=== PATIENT | female | born 1995 | race Caucasian/White ===

== ENCOUNTER 2023-06-09 13:45 | Emergency (ER) | payer MEDICAID, SELFPAY ==
[2023-06-09 13:46] VITALS: BP 141/84; PULSE 95; RESP 16; TEMP 36.1; O2SAT 98; BMI 31.6
--- NOTE | 2023-06-09 13:53 | EX.ED.DYSGE1 ---
HPI History of Present Illness Chief Complaint: Flank Pain Informant: patient Onset/Context/Timing Onset: Days (2) Context: Gradual Onset Timing: Continuous Quality: Sharp Location: Right flank Worsened by: Nothing Relieved by: Leaning to the right Narrative Narrative: Patient presents with right flank pain that has been getting progressively worse over the past couple days. Patient states he has a history of kidney stones and states this feels similar to prior kidney stones. Patient describes her pain as sharp. Patient states it is better when she leans to the right. Patient admits to some nausea but denies any vomiting. Patient admits to some dysuria, frequency, and hematuria. Patient admits to some subjective fevers last night. Patient denies any chest pain or shortness of breath. [facility] Medical History (Updated 06/09/23 @ 15:[address] Jimenez Payton DO) Endometriosis determined by laparoscopy Kidney stones Physical exam, pre-employment Home Medications hydrocodone-acetaminophen 5-325mg 5mg-325mg 1 tab PO Q6H PRN PRN Pain 3 days #10 TABLETS 06/09/23 [Rx Last Taken Unknown] Allergy/AdvReac Type Severity Reaction Status Date / Time No Known Allergies Allergy Verified 06/09/23 13:45 Surgical History (Updated 06/09/23 @ 13:[address] Jimenez Payton DO) Hx of tonsillectomy S/P lumpectomy, left breast Social History Smoking Status: Current every day smoker tobacco type: cigarettes ROS ROS ED Constitutional Constitutional ED: Reports fever(s) and subjective; Denies chills Eyes Eyes: Denies blurry vision or change in vision ENT ENT ED: Denies rhinorrhea or sore throat Cardiovascular Cardiovascular: Denies chest pain or palpitations Respiratory/Chest Respiratory/Chest: Denies cough or dyspnea Gastrointestinal Gastrointestinal: Reports abdominal pain and nausea; Denies vomiting Genitourinary Genitourinary ED: Reports dysuria, hematuria and urinary frequency Musculoskeletal Musculoskeletal: Reports back pain; Denies neck pain Integumentary Denies abscess or rash Neurologic Neurologic: Denies headache(s) or weakness Allergic/Immunologic Allergic/Immunologic ED: Denies mouth swelling or urticaria EXAM Physical Exam Const Vital Signs: 06/09/23 13:46 Temperature 97 F L Temperature Source Temporal Pulse Rate 95 Respiratory Rate 16 Blood Pressure 141/84 H Blood Pressure Mean 103 Pulse Ox 98 Oxygen Delivery Method Room Air Positive well nourished, well developed and obese General Appearance ED: well developed and NAD Nutritional Appearance: obese HEENT Reports moist mucous membranes Neck supple and no JVD Resp normal respiratory effort and clear to auscultation bilaterally Cardio regular rate and regular rhythm GI non-distended Palpation: soft and tender RLQ; Negative for guarding or rebound tenderness present Back/Spine General Back: CVA tenderness right Neuro oriented x3, CN's II-XII intact bilaterally and no sensory deficits noted Sensorium / Orientation: alert Motor Exam: strength 5/5 throughout MDM MDM MDM Narrative Medical decision making narrative: Differential diagnosis includes ureteral calculus, pyelonephritis, bowel obstruction, perforation, appendicitis, mesenteric adenitis, and urinary tract infection. CBC will be obtained to assess for leukocytosis and anemia. Basic metabolic profile will be obtained to assess for electrolyte abnormality and renal function. Serum hCG will be obtained to assess for . CT scan of the abdomen pelvis will be obtained to assess for ureteral calculus, pyelonephritis, bowel obstruction, perforation, and appendicitis. Lab Data Attestation: I reviewed the patient's lab results. Lab results narrative: CBC was reviewed and was essentially within normal limits. Basic metabolic profile was reviewed and was within normal limits. Serum hCG was reviewed and was negative. Urinalysis was reviewed. There is no evidence of urinary tract infection or hematuria. Labs: Laboratory Results - last 24 hr 06/09/23 14:10 WBC 7.8 RBC 5.38 Hgb 16.0 H Hct 47.7 H MCV 88.7 MCH 29.7 MCHC 33.5 RDW Std Deviation 42.0 RDW Coeff of Shankar 12.9 Plt Count 349 MPV 10.4 Immature Gran % (Auto) 0.100 Neut % (Auto) 63.3 Lymph % (Auto) 26.2 [place] % (Auto) 7.7 Eos % (Auto) 2.4 Baso % (Auto) 0.3 Absolute Neuts (auto) 5.0 Absolute Lymphs (auto) 2.05 Nucleated RBC % 0 Sodium 138 Potassium 3.7 Chloride 109 H Carbon Dioxide 26.0 Anion Gap 3 L BUN 6 L Creatinine 0.78 Estim Creat Clear Calc 98.23 Est GFR (MDRD) Af Amer 111 Est GFR (MDRD) Non-Af 92 BUN/Creatinine Ratio 7.7 L Glucose 101 Calcium 9.1 Serum , Qual NEGATIVE Urine Color Yellow Urine Clarity Sl. Cloudy Urine pH 6.0 Ur Specific [place] 1.020 Urine Protein Negative Urine Glucose (UA) Normal Urine Ketones Negative Urine Occult Blood 10 H Urine Nitrite Negative Urine Bilirubin Negative Urine Urobilinogen Normal Ur Leukocyte Esterase 25 H Urine RBC 0 SEEN Urine WBC 0 SEEN Ur Squamous Epith Cells > 100 SEEN Urine Bacteria 0 SEEN Urine Mucus 0 SEEN Radiography Diagnostic Testing: Clinical Impression(s) from Imaging Studies Abdomen/Pelvis CT 06/09/23 14:00 IMPRESSION: (NOT LISTED IN ORDER OF SIGNIFICANCE) Nonobstructive right renal stone. Other findings as above. Electronically Signed: Femi Ventura MD at 15:29 EDT , CT scan of the abdomen pelvis was obtained. There are nonobstructive right renal calculi. There is no acute abnormality. There is no evidence of bowel obstruction or perforation. There is no evidence of appendicitis. This was interpreted by the radiologist and was also independently reviewed by myself. Treatment and Re-Evaluation :: Patient was given IV fluids, morphine, and Zofran. Patient was advised of her findings. Patient is feeling better on reevaluation. Patient was instructed to drink plenty of fluids. Patient was given a prescription for a short course of [place]. Patient was instructed to follow-up with her primary care physician in 5 to 7 days. Patient understood and was agreeable with the plan. All questions were answered. Discharge Plan Triage Chief Complaint: Flank Pain ED Provider: Jimenez Payton Dx/Rx/DC Orders Clinical Impression: Acute right flank pain, Obesity (BMI 30-39.9) Instructions: ED Flank Pain, Uncertain Cause Prescriptions: New hydrocodone-acetaminophen [hydrocodone-acetaminophen] 5-325 mg tablet 1 tab PO Q6H PRN PRN (Reason: Pain) 3 Days Qty: 10 0RF Primary Care Provider: Care Physician,No Primary Referrals: Denisse Salinas MD [Med Staff - Self [employer] Manager] - 5-7 Days Care Physician,No Primary [Primary Care Provider] - Disposition Disposition: Home, Self Care
--- NOTE | 2023-06-09 14:00 | CT_ITS ---
STUDY: CT Abdomen And Pelvis W/O Contrast Injection 06/09/2023 3:27 PM REASON FOR EXAM: Female, 28 years old. ABDOMINAL PAIN Right flank pain TECHNIQUE: Transaxial images were obtained without oral contrast, and without intravenous contrast. Individualized dose optimization techniques were used for this CT. COMPARISON: None FINDINGS: The visualized lung bases are unremarkable. The visualized portions of the heart are within normal limits. Unremarkable liver. Unremarkable gallbladder and extrahepatic biliary system. Unremarkable spleen. Unremarkable pancreas. Unremarkable bilateral adrenal glands. Non obstructive 2 mm right renal parenchymal stones. No acute findings of the left kidney. Unremarkable visualized stomach. Unremarkable small intestine. Unremarkable colon. The appendix is visualized and appears unremarkable. There are no acute findings of the abdominal aorta. Unremarkable inferior vena cava. Subcentimeter mesenteric lymph nodes. Unremarkable urinary bladder. Normal visualized uterus. There is an umbilical hernia containing fat. Unremarkable osseous structures. CT/Abdomen/Pelvis without Cont IMPRESSION: (NOT LISTED IN ORDER OF SIGNIFICANCE) Nonobstructive right renal stone. Other findings as above. Electronically Signed: Femi Ventura MD at 15:29 EDT ,
[2023-06-09] MEDS: Ondansetron 4 MG/2 ML Vial IV (14:10)
[2023-06-09] MEDS: 0.9% Normal Saline (1000mL) 1,000 ML 1000 ML IV (14:10)
[2023-06-09] MEDS: Morphine 4 MG/ML Syringe IV (14:13)
[2023-06-09 14:20] LABS: Bacteria 0 SEEN /hpf (None Seen); Mucous, Urine 0 SEEN /hpf (<or=2+); Red Blood Cells-Urine 0 SEEN /hpf (0-5); White Blood Cells 0 SEEN /hpf (0-5)
[2023-06-09 14:24] LABS: Absolute Lymphocyte Count 2.05 X10^3/uL (0.83-4.51); Basophil# 0.02 X10^3/uL; Basophil% 0.3 % (0-1); Color, Urine Yellow (Yellow); Eosinophil# 0.19 X10^3/uL; Eosinophils% 2.4 % (0-5); Glucose, Dipstick Normal (Normal); Hematocrit 47.7 % (37-47); Ketone-Dipstick Negative (Negative); Leukocyte Esterase-Dipstick 25 /ul (Negative); Lymphocyte # 2.05 X10^3/ul (0.83-4.51); Lymphocyte % 26.2 % (19-41); Mean Corp Hgb Conc 33.5 g/dL (32-36); Mean Corpuscular Hgb 29.7 pg (27.0-32.0); Mean Corpuscular Volume 88.7 fL (81-99); Mean Platelet Vol. 10.4 fl (6.2-12.0); Monocyte% 7.7 % (0-10); NRBC Flagged by Analyzer 0 % (0-5); Neutrophil # 4.95 X10^3/uL (2.7-7.7); Neutrophil % 63.3 % (47-70); Nitrite-Dipstick Negative (Negative); Occult Blood-Urine 10 /ul (Negative); Platelet Count 349 K/mm3 (150-450); Protein-Dipstick Negative (Negative); RBC Distribution Width CV 12.9 % (11.6-14.6); Red Blood Count 5.38 M/mm3 (4.2-5.4); Urine Bilirubin Dipstick Negative (Negative); Urine Clarity Sl. Cloudy (Clear); Urine Urobilinogen Normal (Normal); White Blood Count 7.8 K/mm3 (4.4-11.0)
[2023-06-09 14:29] LABS: Squamous Epithelial Cells - UA > 100 SEEN /hpf (5-10)
[2023-06-09 14:31] LABS: Internal QC Validated? YES +Cl - CLEAR BKGD; Pregnancy, Serum, hCG Quali. NEGATIVE Negative
[2023-06-09 14:32] LABS: Record Kit Lot#, Serum Preg. HCG0000718086
[2023-06-09 14:36] LABS: Anion Gap 3 (5-15); BUN 6 mg/dL (7-18); BUN/Creat Ratio 7.7 RATIO (10-20); Calcium,Total 9.1 mg/dL (8.5-10.1); Chloride 109 mmol/L (98-107); Creatinine, Serum 0.78 mg/dL (0.55-1.02); EST Glomerular Filtration Rate 92 mL/min (>60); Est Glom Filt Rate - Afr Amer 111 mL/min (>60); Estimated Creatinine Clearance 98.23 ml/min; Glucose 101 mg/dL (74-106); Potassium 3.7 mmol/L (3.5-5.1); Sodium Level 138 mmol/L (136-145)
[2023-06-09 15:41] VITALS: BP 129/97; PULSE 90; RESP 20; O2SAT 98
[2023-06-09 15:53] VITALS: BP 129/97; PULSE 90; RESP 20; TEMP 36.2; O2SAT 98
== END 2023-06-09 15:55 | disposition home or self-care (01) ==
PROVIDERS: Emergency Provider Emergency Medicine; Visit Provider Emergency Medicine
DX: R10.9 Unspecified abdominal pain (principal); E66.9 Obesity, unspecified; F17.210 Nicotine dependence, cigarettes, uncomplicated
CPT/HCPCS: 74176; 80048; 81001; 84703; 85025; 96361; 96374; 96375; 99283; J7030; A4216; J2405

== ENCOUNTER 2024-01-06 17:06 | Emergency (ER) | payer SELFPAY ==
[2024-01-06 17:06] VITALS: BP 140/89; PULSE 81; RESP 17; TEMP 36.6; O2SAT 100; BMI 30.1
--- NOTE | 2024-01-06 17:17 | CT_ITS ---
EXAM: CT ABDOMEN AND PELVIS WITHOUT INTRAVENOUS CONTRAST CLINICAL INDICATION: right flank pain TECHNIQUE: Helically acquired images were obtained of the abdomen and pelvis without intravenous contrast. This CT exam was performed using one or more of the following dose reduction techniques: automated exposure control, adjustment of the mA and/or kV according to patient size, and/or use of iterative reconstruction technique. RADIATION DOSE: CTDIvol = 7.48 mGy, DLP = 386.79 mGy-cm COMPARISON: 06/09/2023 FINDINGS: LOWER THORAX: Unremarkable. Lung bases are clear. No cardiomegaly. No significant pericardial effusion. ABDOMEN: LIVER: Unremarkable. Homogeneous. GALLBLADDER AND BILE DUCTS: Unremarkable. No calcified gallstones. No gallbladder distention or wall edema. No intra- or extrahepatic biliary ductal dilation. PANCREAS: Unremarkable. No focal cystic mass. SPLEEN: Unremarkable. Normal size without focal cystic or solid mass. ADRENALS: Unremarkable. No nodules. KIDNEYS AND URETERS: 2 mm nonobstructive right renal stone. Normal renal size and position. STOMACH AND BOWEL: Unremarkable. No stomach or bowel distention. No focal inflammatory change. PELVIS: APPENDIX: Unremarkable appearance of the appendix. BLADDER: Unremarkable. REPRODUCTIVE: Unremarkable uterus. ABDOMEN and PELVIS: INTRAPERITONEAL SPACE: Unremarkable. No ascites or other fluid collection. No free air. BONES/JOINTS: Unremarkable. No suspicious lytic or blastic abnormality. SOFT TISSUES: Umbilical hernia containing fat. VASCULATURE: Unremarkable. Abdominal aorta is non-dilated. LYMPH NODES: Unremarkable. No enlarged lymph nodes. CT/Abdomen/Pelvis without Cont IMPRESSION: 1. 2 mm nonobstructive right renal stone. 2. Umbilical hernia containing fat. Electronically Signed: Femi Ventura MD at 19:01 EST ,
--- NOTE | 2024-01-06 17:18 | EX.ED.DYSGE1 ---
HPI <SHERRI Quijano - Last Filed: 01/06/24 19:10> History of Present Illness Chief Complaint: Complaint Narrative Narrative: 28-year-old female with past medical history of kidney stones presents with right flank pain. 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 However, the pain became more severe last night and woke her from sleep and this morning around 11 AM it caused her to vomit. Pain is radiating around to her right groin. She also has urinary frequency and burning. No vaginal discharge. No fever or chills. She has had kidney stones multiple times in the past but never required surgery. She was seeing a urologist in [place] and was told they were calcium stones and to cut out soda which did help but she started drinking it again recently. PFSH <SHERRI Quijano - Last Filed: 01/06/24 19:10> [facility] Medical History (Updated 01/06/24 @ 19:03 by SHERRI Quijano) Kidney stones Endometriosis determined by laparoscopy Physical exam, pre-employment Home Medications ?Medication ?Instructions ?Recorded ?Last Taken ?Type hydrocodone-acetaminophen 5-325mg 1 tab PO Q6H PRN PRN Pain 3 days 06/09/23 Unknown Rx 5mg-325mg #10 TABLETS ondansetron 4 mg disintegrating 4 mg PO Q8H PRN PRN Nausea #10 tabs 06/09/23 Unknown Rx tablet Allergy/AdvReac Type Severity Reaction Status Date / Time No Known Allergies Allergy Verified 01/06/24 17:07 Surgical History (Updated 06/09/23 @ 13:[address] Jimenez Payton, DO) Hx of tonsillectomy S/P lumpectomy, left breast Social History Smoking Status: Current every day smoker tobacco type: cigarettes ROS <SHERRI Quijano - Last Filed: 01/06/24 19:10> ROS ED ROS Narrative Constitutional: Negative for fever, chills, malaise. CVS: Negative for chest pain. Respiratory: Negative for shortness of breath, cough. GI: Positive for abdominal pain, nausea, vomiting. Negative for diarrhea, constipation, melena, hematochezia. : Positive for dysuria. EXAM <SHERRI Quijano - Last Filed: 01/06/24 19:10> Physical Exam Narrative Exam Narrative: CONST: Patient sitting in no acute distress. EYES: Normal inspection. ENT: Normal inspection, moist mucous membranes. NECK: Normal inspection. RESP: No respiratory distress, CTAB. CVS: Regular rate and rhythm, no murmur, no gallop. ABD: Soft and nontender, no guarding or rebound, nondistended. Back: Normal inspection, right CVA tenderness. SKIN: Color normal, no rash, warm, dry, intact. EXTREMITIES: Normal appearance, no pedal edema. NEURO: Alert and answering questions appropriately. PSYCH: Normal affect. Const Vital Signs: 01/06/24 17:06 Temperature 98 F Temperature Source Temporal Pulse Rate 81 Respiratory Rate 17 Blood Pressure 140/89 H Blood Pressure Mean 106 Pulse Ox 100 Oxygen Delivery Method Room Air <Dr. Yannick Irizarry MD - Last Filed: 01/06/24 19:13> Physical Exam Const Vital Signs: 01/06/24 17:06 Temperature 98 F Temperature Source Temporal Pulse Rate 81 Respiratory Rate 17 Blood Pressure 140/89 H Blood Pressure Mean 106 Pulse Ox 100 Oxygen Delivery Method Room Air MDM <SHERRI Quijano - Last Filed: 01/06/24 19:10> [facility] MDM Narrative Medical decision making narrative: Differential includes but not limited to: UTI, pyelonephritis, kidney stone, muscle pain Patient has right flank pain. She appears well and nontoxic and is hemodynamically stable. She has CVA tenderness on exam. Soft, nontender benign abdomen. Basic labs and urinalysis are normal. There is no hematuria or infection. test negative. Due to her history of stones a CT scan was obtained which shows no acute process. There is a small nonobstructive stone which is unchanged from previous. Patient was treated with Toradol and advised to take dhps-nce-loieujt pain relievers at home. At this time I am not sure what the etiology of her right flank pain is. She was discharged in stable condition Lab Data Labs: Laboratory Results - last 24 hr 01/06/24 01/06/24 17:33 17:45 WBC 9.7 RBC 5.21 Hgb 14.9 Hct 46.0 MCV 88.3 MCH 28.6 MCHC 32.4 RDW Std Deviation 41.1 RDW Coeff of Shankar 12.6 Plt Count 333 MPV 10.5 Immature Gran % (Auto) 0.300 Neut % (Auto) 66.3 Lymph % (Auto) 23.6 [place] % (Auto) 7.0 Eos % (Auto) 2.5 Baso % (Auto) 0.3 Absolute Neuts (auto) 6.5 Absolute Lymphs (auto) 2.30 Nucleated RBC % 0 Sodium 140 Potassium 3.7 Chloride 110 H Carbon Dioxide 26.0 Anion Gap 5 BUN 9 Creatinine 0.66 Estim Creat Clear Calc 113.34 Est GFR (MDRD) Af Amer 136 Est GFR (MDRD) Non-Af 112 BUN/Creatinine Ratio 13.7 Glucose 93 Calcium 9.1 Urine Color Yellow Urine Clarity Clear Urine pH 6.0 Ur Specific [place] 1.010 Urine Protein Negative Urine Glucose (UA) Normal Urine Ketones Negative Urine Occult Blood Negative Urine Nitrite Negative Urine Bilirubin Negative Urine Urobilinogen Normal Ur Leukocyte Esterase Negative Urine RBC 0 SEEN Urine WBC 0-5 SEEN Ur Squamous Epith Cells 0 SEEN Urine Bacteria RARE Urine Mucus 0 SEEN Urine Test Negative Radiography Diagnostic Testing: Clinical Impression(s) from Imaging Studies Abdomen/Pelvis CT 01/06/24 17:17 IMPRESSION: 1. 2 mm nonobstructive right renal stone. 2. Umbilical hernia containing fat. Electronically Signed: Femi Ventura MD at 19:01 EST Reading Location ID and State: [address] [place] [address] , Service support , <Dr. Yannick Irizarry MD - Last Filed: 01/06/24 19:13> [facility] MDM Narrative Medical decision making narrative: Differential includes but not limited to: UTI, pyelonephritis, kidney stone, muscle pain Patient has right flank pain. She appears well and nontoxic and is hemodynamically stable. She has CVA tenderness on exam. Soft, nontender benign abdomen. Basic labs and urinalysis are normal. There is no hematuria or infection. test negative. Due to her history of stones a CT scan was obtained which shows no acute process. There is a small nonobstructive stone which is unchanged from previous. Patient was treated with Toradol and advised to take guxi-oea-hrxceck pain relievers at home. At this time I am not sure what the etiology of her right flank pain is. She was discharged in stable condition I have personally performed a face to face assessment of the patient and have reviewed the ASHLEY Note. I performed a substantive portion of the visit including all aspects of the following. My gu findings include: History is remarkable for prior renal stones. Patient was seen June and was diagnosed with a small right renal calculus. There is no evidence of hydronephrosis hydroureter or a stone in the ureter. She presents with right flank pain rating to the groin. She reports nausea and vomiting. She also reports frequency. She has not noted any blood. She states there is some discomfort with urination. There is no history of direct or indirect trauma. She has not noted a rash. Exam is patient appears uncomfortable. Patient has pain out of proportion to tactile stimulus. There are no dermatologic lesions noted. Abdomen is soft and nontender in my opinion. There is decreased bowel sounds. There is no hepatosplenomegaly. There is no inguinal lymphadenopathy or mass noted. Medical Decision Making will obtain UA and appropriate blood work. CT was obtained. Patient's workup is unremarkable. Patient was told that the cause of her pain is unknown. She was informed that a stone in the kidney does not cause pain. Asked if she had any questions or any else we could do. She stated since the cause is unknown she had no questions and did not request any additional pain medicine. There was a note by the nursing staff that the Toradol did not work. Patient was told since we do not know the cause of the pain nothing else would be given. Other additions or changes: None Lab Data Attestation: I reviewed the patient's lab results. Lab results narrative: CBC is normal. Basic metabolic panel is unremarkable with a chloride of 110. Urinalysis is negative Labs: Laboratory Results - last 24 hr 01/06/24 01/06/24 17:33 17:45 WBC 9.7 RBC 5.21 Hgb 14.9 Hct 46.0 MCV 88.3 MCH 28.6 MCHC 32.4 RDW Std Deviation 41.1 RDW Coeff of Shankar 12.6 Plt Count 333 MPV 10.5 Immature Gran % (Auto) 0.300 Neut % (Auto) 66.3 Lymph % (Auto) 23.6 [place] % (Auto) 7.0 Eos % (Auto) 2.5 Baso % (Auto) 0.3 Absolute Neuts (auto) 6.5 Absolute Lymphs (auto) 2.30 Nucleated RBC % 0 Sodium 140 Potassium 3.7 Chloride 110 H Carbon Dioxide 26.0 Anion Gap 5 BUN 9 Creatinine 0.66 Estim Creat Clear Calc 113.34 Est GFR (MDRD) Af Amer 136 Est GFR (MDRD) Non-Af 112 BUN/Creatinine Ratio 13.7 Glucose 93 Calcium 9.1 Urine Color Yellow Urine Clarity Clear Urine pH 6.0 Ur Specific [place] 1.010 Urine Protein Negative Urine Glucose (UA) Normal Urine Ketones Negative Urine Occult Blood Negative Urine Nitrite Negative Urine Bilirubin Negative Urine Urobilinogen Normal Ur Leukocyte Esterase Negative Urine RBC 0 SEEN Urine WBC 0-5 SEEN Ur Squamous Epith Cells 0 SEEN Urine Bacteria RARE Urine Mucus 0 SEEN Urine Test Negative Radiography Diagnostic Testing: Clinical Impression(s) from Imaging Studies Abdomen/Pelvis CT 01/06/24 17:17 IMPRESSION: 1. 2 mm nonobstructive right renal stone. 2. Umbilical hernia containing fat. Electronically Signed: Femi Ventura MD at 19:01 EST Reading Location ID and State: [facility] / [place] , Service support , CT of the abdomen and pelvis without contrast reveals a stone in the right kidney. This is unchanged from prior. Awaiting for formal read by radiologist, [phone] Discharge Plan Triage Chief Complaint: Complaint ED Midlevel Provider: Marleni Handley ED Provider: Yannick Irizarry Dx/Rx/DC Orders Clinical Impression: Right flank pain Instructions: Abdominal Pain, ED Flank Pain, Uncertain Cause Prescriptions: No Action hydrocodone-acetaminophen [hydrocodone-acetaminophen] 5-325 mg tablet 1 tab PO Q6H PRN PRN (Reason: Pain) 3 Days Qty: 10 0RF ondansetron [ondansetron] 4 mg tablet,disintegrating 4 mg PO Q8H PRN PRN (Reason: Nausea) Qty: 10 0RF Primary Care Provider: Care Physician,No Primary Referrals: Care Physician,No Primary [Primary Care Provider] - Activity Restrictions/Additional Instructions: I am not sure what the source of your right flank pain is. Your labs and CT scan are within normal limits. Please take Tylenol or Motrin as needed and follow-up with your doctor. Print Language: Yakut Disposition Disposition: Home, Self Care
[2024-01-06] MEDS: Ketorolac 30 MG/ML Syringe IV (17:28)
[2024-01-06 17:46] LABS: Absolute Neutrophil Count 6.5 X10^3/uL (2.0-7.7); Basophil# 0.03 X10^3/uL; Basophil% 0.3 % (0-1); Eosinophil# 0.24 X10^3/uL; Eosinophils% 2.5 % (0-5); Hemoglobin 14.9 g/dL (12.0-15.0); Lymphocyte % 23.6 % (19-41); Mean Corp Hgb Conc 32.4 g/dL (32-36); Mean Corpuscular Hgb 28.6 pg (27.0-32.0); Mean Corpuscular Volume 88.3 fL (81-99); Mean Platelet Vol. 10.5 fl (6.2-12.0); Monocyte# 0.68 X10^3/uL; NRBC Flagged by Analyzer 0 % (0-5); Neutrophil # 6.45 X10^3/uL (2.7-7.7); Neutrophil % 66.3 % (47-70); Platelet Count 333 K/mm3 (150-450); RBC Distribution Width CV 12.6 % (11.6-14.6); RBC Distribution Width SD 41.1 fl (35.1-43.9); Red Blood Count 5.21 M/mm3 (4.2-5.4); White Blood Count 9.7 K/mm3 (4.4-11.0)
[2024-01-06 17:50] LABS: Mucous, Urine 0 SEEN /hpf (<or=2+); Red Blood Cells-Urine 0 SEEN /hpf (0-5); Squamous Epithelial Cells - UA 0 SEEN /hpf (5-10)
[2024-01-06 17:53] LABS: Color, Urine Yellow (Yellow); Glucose, Dipstick Normal (Normal); Ketone-Dipstick Negative (Negative); Leukocyte Esterase-Dipstick Negative /ul (Negative); Nitrite-Dipstick Negative (Negative); Occult Blood-Urine Negative /ul (Negative); Protein-Dipstick Negative (Negative); Urine Bilirubin Dipstick Negative (Negative); Urine Clarity Clear (Clear); Urine Urobilinogen Normal (Normal)
[2024-01-06 17:57] LABS: Anion Gap 5 (5-15); BUN 9 mg/dL (7-18); BUN/Creat Ratio 13.7 RATIO (10-20); Calcium,Total 9.1 mg/dL (8.5-10.1); Chloride 110 mmol/L (98-107); Creatinine, Serum 0.66 mg/dL (0.55-1.02); EST Glomerular Filtration Rate 112 mL/min (>60); Est Glom Filt Rate - Afr Amer 136 mL/min (>60); Estimated Creatinine Clearance 113.34 ml/min; Glucose 93 mg/dL (74-106); Potassium 3.7 mmol/L (3.5-5.1); Sodium Level 140 mmol/L (136-145)
[2024-01-06 17:59] LABS: Internal QC Validated? YES +Cl - CLEAR BKGD; Pregnancy, Urine Negative Negative
[2024-01-06 18:01] LABS: Bacteria RARE /hpf (None Seen); White Blood Cells 0-5 SEEN /hpf (0-5)
[2024-01-06 19:06] VITALS: PULSE 68; RESP 18; O2SAT 99
[2024-01-06 19:16] VITALS: BP 146/89; PULSE 80; RESP 18; TEMP 36; O2SAT 98
== END 2024-01-06 19:19 | disposition home or self-care (01) ==
PROVIDERS: Physician Assistant; Emergency Provider Emergency Medicine; Visit Provider Emergency Medicine
DX: N20.0 Calculus of kidney (principal); Z87.442 Personal history of urinary calculi; F17.210 Nicotine dependence, cigarettes, uncomplicated
CPT/HCPCS: 74176; 80048; 81001; 81025; 85025; 96374; 99283; A4216

== ENCOUNTER 2024-05-12 15:02 | Emergency (ER) | payer MEDICAID, SELFPAY ==
[2024-05-12 15:05] VITALS: BP 143/100; PULSE 99; RESP 20; TEMP 36.6; O2SAT 100; BMI 29.3
--- NOTE | 2024-05-12 15:07 | EKG12_ITS ---
Test Reason : CP Blood Pressure : */* mmHG Vent. Rate : 95 BPM Atrial Rate : 95 BPM P-R Int : 132 ms QRS Dur : 70 ms QT Int : 354 ms P-R-T Axes : 72 64 42 degrees QTcB Int : 444 ms Normal sinus rhythm Normal ECG Confirmed by Binh Panchal ([id number]), manuscript editor CHERRI MAYES ([id number]) on 05/13/2024 10:56:23 AM Referred By: Elías Yanes Confirmed By: Binh Panchal
--- NOTE | 2024-05-12 15:35 | RAD_ITS ---
EXAM: XR Chest, 1 View CLINICAL INDICATION: CHEST PAIN TECHNIQUE: Frontal view of the chest. COMPARISON: No relevant prior studies available. FINDINGS: LUNGS AND PLEURAL SPACES: Unremarkable. No consolidation. No pneumothorax. HEART: Unremarkable. No cardiomegaly. MEDIASTINUM: Unremarkable. Normal mediastinal contour. BONES/JOINTS: Unremarkable. No acute fracture. RAD/Chest 1 View (Portable) IMPRESSION: No acute cardiopulmonary process. Reading Location: [facility]
--- NOTE | 2024-05-12 15:42 | ED.VIS.CHEST ---
HPI <SHERRI Quijano - Last Filed: 05/12/24 18:24> History of Present Illness Chief Complaint: Chest Pain Narrative Narrative: 28-year-old female with PMH of tobacco use and anxiety presents with chest pain that started while she was driving and talking to her mom on the phone around 2 PM. She reports a sharp squeezing chest pain in the center of her chest. She felt like it was hard to take a deep breath but she was not short of breath. The pain moved towards her right lower rib cage and down her right arm with tingling in the hand. She then developed a migraine and nausea without vomiting. She states she has had panic attacks but this feels different. She is not on any medications. She smokes 1 pack about every 2 to 3 days. She has no history of DVT/PE, leg pain or swelling, recent surgery or travel, cough or hemoptysis, or hormone use. She has no personal cardiac history. Her mother had a CABG in her 40s and has PAD. 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 Jimenez Payton, DO) Hx of tonsillectomy S/P lumpectomy, left breast Social History Smoking Status: Current every day smoker tobacco type: cigarettes ROS <SHERRI Quijano - Last Filed: 05/12/24 18:24> ROS ED ROS Narrative Constitutional: Negative for fever, chills, malaise. CVS: Positive for chest pain. No negative for palpitations, syncope. Respiratory: Negative for shortness of breath, cough, orthopnea. GI: Negative for abdominal pain, vomiting. EXAM <SHERRI Quijano - Last Filed: 05/12/24 18:24> Physical Exam Narrative Exam Narrative: CONST: Patient sitting in no acute distress. EYES: Normal inspection. NECK: Normal inspection. RESP: No respiratory distress, CTAB. CVS: Regular rate and rhythm, no murmur, no gallop. Tender to palpation over right lower anterior chest, no deformity or crepitus, no skin changes. ABD: Soft and nontender, no guarding or rebound, nondistended, no hepatosplenomegaly. SKIN: Color normal, no rash, warm, dry, intact. EXTREMITIES: Normal appearance, no pedal edema. No calf tenderness NEURO: Alert and answering questions appropriately. PSYCH: Crying and anxious. Const Vital Signs: 05/12/24 15:05 05/12/24 16:26 05/12/24 16:27 Temperature 98 F Temperature Source Oral Pulse Rate 99 74 Respiratory Rate 20 H 21 H Respiratory Effort Normal Blood Pressure 143/100 H 141/83 H Blood Pressure Mean 114 102 Pulse Ox 100 97 Oxygen Delivery Method Room Air 05/12/24 17:00 05/12/24 18:00 05/12/24 18:22 Temperature 97.8 F Temperature Source Pulse Rate 75 66 Respiratory Rate 17 17 Respiratory Effort Blood Pressure 131/86 H 128/80 H 130/77 H Blood Pressure Mean 101 96 94 Pulse Ox 97 97 Oxygen Delivery Method <Elías Yanes MD - Last Filed: 05/12/24 22:58> Physical Exam Const Vital Signs: 05/12/24 15:05 05/12/24 16:26 05/12/24 16:27 Temperature 98 F Temperature Source Oral Pulse Rate 99 74 Respiratory Rate 20 H 21 H Respiratory Effort Normal Blood Pressure 143/100 H 141/83 H Blood Pressure Mean 114 102 Pulse Ox 100 97 Oxygen Delivery Method Room Air 05/12/24 17:00 05/12/24 18:00 05/12/24 18:22 Temperature 97.8 F Temperature Source Pulse Rate 75 66 Respiratory Rate 17 17 Respiratory Effort Blood Pressure 131/86 H 128/80 H 130/77 H Blood Pressure Mean 101 96 94 Pulse Ox 97 97 Oxygen Delivery Method MDM <SHERRI Quijano - Last Filed: 05/12/24 18:24> MDM MDM Narrative Medical decision making narrative: Differential includes but not limited to ACS, GERD, PE, anxiety, musculoskeletal 28-year-old female presents with chest pain that started at rest. Also complains of nausea and headache. She appears anxious and nontoxic. She was initially slightly hypertensive at 143/100 with otherwise stable vital signs. She has normal cardiopulmonary exam. There is reproducible tenderness of the right chest wall. No abdominal tenderness. No skin changes or signs of zoster. Regarding her headache she has a normal neurological exam. No infectious signs or symptoms and no meningismus is present. EKG is normal sinus rhythm and serial troponins are 12 and less than 6 which rules out ACS. She is PERC negative so I did not order a D-dimer. Basic labs unremarkable. CXR negative. After IV Toradol, Compazine, Benadryl she is feeling improved and comfortable with discharge home. Return precautions discussed. Lab Data Attestation: I reviewed the patient's lab results. Labs: Laboratory Results - last 24 hr 05/12/24 05/12/24 15:20 17:18 WBC 9.1 RBC 5.36 Hgb 15.9 H Hct 47.2 H MCV 88.1 MCH 29.7 MCHC 33.7 RDW Std Deviation 40.9 RDW Coeff of Shankar 12.6 Plt Count 337 MPV 11.2 Immature Gran % (Auto) 0.300 Neut % (Auto) 62.5 Lymph % (Auto) 28.2 Daggett % (Auto) 5.9 Eos % (Auto) 2.7 Baso % (Auto) 0.4 Absolute Neuts (auto) 5.7 Absolute Lymphs (auto) 2.57 Nucleated RBC % 0 Sodium 139 Potassium 3.9 Chloride 106 Carbon Dioxide 22.3 Anion Gap 11 BUN 5 Creatinine 0.66 L Estim Creat Clear Calc 111.91 Est GFR (MDRD) Non-Af 121 BUN/Creatinine Ratio 7.3 L Glucose 92 Calcium 9.2 Troponin T High Sens 12 Troponin T Hi Sens 2 Hr < 6 Radiography Diagnostic Testing: Clinical Impression(s) from Imaging Studies Chest X-Ray 05/12/24 15:35 IMPRESSION: No acute cardiopulmonary process. Reading Location: [facility] ED attending interpretation of 2 view chest x-ray shows normal heart size, no acute infiltrate. EKG Initial EKG: Attestation: I personally reviewed and interpreted this EKG as follows: Interpretation: Sinus Rhythm and No Acute Injury Pattern Comments: Normal sinus rhythm at 95 bpm Normal intervals, no acute ischemic changes <Elías Yanes MD - Last Filed: 05/12/24 22:58> [facility] History & Record Review Discussion w/independent historian: Patient Lab Data Labs: Laboratory Results - last 24 hr 05/12/24 05/12/24 15:20 17:18 WBC 9.1 RBC 5.36 Hgb 15.9 H Hct 47.2 H MCV 88.1 MCH 29.7 MCHC 33.7 RDW Std Deviation 40.9 RDW Coeff of Shankar 12.6 Plt Count 337 MPV 11.2 Immature Gran % (Auto) 0.300 Neut % (Auto) 62.5 Lymph % (Auto) 28.2 Daggett % (Auto) 5.9 Eos % (Auto) 2.7 Baso % (Auto) 0.4 Absolute Neuts (auto) 5.7 Absolute Lymphs (auto) 2.57 Nucleated RBC % 0 Sodium 139 Potassium 3.9 Chloride 106 Carbon Dioxide 22.3 Anion Gap 11 BUN 5 Creatinine 0.66 L Estim Creat Clear Calc 111.91 Est GFR (MDRD) Non-Af 121 BUN/Creatinine Ratio 7.3 L Glucose 92 Calcium 9.2 Troponin T High Sens 12 Troponin T Hi Sens 2 Hr < 6 Radiography Chest X-Ray - ED: 1 View, Read by ED Physician and Read by Radiologist Diagnostic Testing: Clinical Impression(s) from Imaging Studies Chest X-Ray 05/12/24 15:35 IMPRESSION: No acute cardiopulmonary process. Reading Location: [facility] Treatment and Re-Evaluation :: Dr. Yanes: I have personally performed a face to face assessment of the patient and have reviewed the ASHLEY Note. I performed a substantive portion of the visit including all aspects of the following. My gu findings include: History is chest pain and right arm pain while driving. Mild anxiety. Exam is afebrile. Vital signs noted, nontoxic-appearing. Cardiovascular examination reveals regular rate and rhythm. Lungs are clear to auscultation bilaterally. Abdomen soft, nontender, without guarding or rebound. Neurological examination nonfocal and nonlateralizing. Medical Decision Making: Check EKG. Check chest x-ray. Chest x-ray interpreted by myself independently shows no acute process. I reviewed the radiology report which confirms my independent interpretation. Check labs. Ruled out with biomarkers. Follow-up primary care. Discharge. Other additions or changes: [None] Discharge Plan Triage Chief Complaint: Chest Pain ED Midlevel Provider: Marleni Handley ED Provider: Elías Yanes Dx/Rx/DC Orders Clinical Impression: Chest pain, Headache Instructions: ED Chest Pain, Uncertain Cause Prescriptions: No Action hydrocodone-acetaminophen [hydrocodone-acetaminophen] 5-325 mg tablet 1 tab PO Q6H PRN PRN (Reason: Pain) 3 Days Qty: 10 0RF ondansetron [ondansetron] 4 mg tablet,disintegrating 4 mg PO Q8H PRN PRN (Reason: Nausea) Qty: 10 0RF Primary Care Provider: Care Physician,No Primary Referrals: Care Physician,No Primary [Primary Care Provider] - Activity Restrictions/Additional Instructions: The testing of your heart looks normal with no sign of heart attack. Chest x-ray is normal. I am not sure what is causing your symptoms but have ruled out life-threatening causes and you can follow-up with your primary care doctor. Print Language: Vietnamese Disposition Disposition: Home, Self Care Discharge Date/Time: 05/12/24 18:23
[2024-05-12 15:55] LABS: Absolute Lymphocyte Count 2.57 X10^3/uL (0.83-4.51); Absolute Neutrophil Count 5.7 X10^3/uL (2.0-7.7); Basophil# 0.04 X10^3/uL; Basophil% 0.4 % (0-1); Eosinophil# 0.25 X10^3/uL; Eosinophils% 2.7 % (0-5); Hematocrit 47.2 % (37-47); Hemoglobin 15.9 g/dL (12.0-15.0); Lymphocyte # 2.57 X10^3/ul (0.83-4.51); Lymphocyte % 28.2 % (19-41); Mean Corp Hgb Conc 33.7 g/dL (32-36); Mean Corpuscular Hgb 29.7 pg (27.0-32.0); Mean Corpuscular Volume 88.1 fL (81-99); Mean Platelet Vol. 11.2 fl (6.2-12.0); Monocyte# 0.54 X10^3/uL; Monocyte% 5.9 % (0-10); NRBC Flagged by Analyzer 0 % (0-5); Neutrophil # 5.69 X10^3/uL (2.7-7.7); Neutrophil % 62.5 % (47-70); Platelet Count 337 K/mm3 (150-450); RBC Distribution Width CV 12.6 % (11.6-14.6); RBC Distribution Width SD 40.9 fl (35.1-43.9); Red Blood Count 5.36 M/mm3 (4.2-5.4); White Blood Count 9.1 K/mm3 (4.4-11.0)
[2024-05-12 15:57] LABS: Anion Gap 11 (5-15); BUN 5 mg/dL (4-19); BUN/Creat Ratio 7.3 RATIO (10-20); Calcium,Total 9.2 mg/dL (7.6-11.0); Carbon Dioxide 22.3 mmol/L (21.0-32.0); Chloride 106 mmol/L (98-108); Creatinine, Serum 0.66 mg/dL (0.70-1.20); EST Glomerular Filtration Rate 121 (>60); Estimated Creatinine Clearance 111.91 ml/min (50-250); Glucose 92 mg/dL (70-99); Potassium 3.9 mmol/L (3.3-5.1); Sodium Level 139 mmol/L (133-145); Troponin T High Sensitivity 12 ng/L (<=14)
[2024-05-12] MEDS: Ondansetron 4 MG/2 ML Vial IV (16:16)
[2024-05-12] MEDS: Ketorolac 15 MG/ML Vial IV (16:16)
[2024-05-12 16:27] VITALS: BP 141/83; PULSE 74; RESP 21; O2SAT 97
[2024-05-12 17:00] VITALS: BP 131/86; PULSE 75; RESP 17; O2SAT 97
[2024-05-12] MEDS: proCHLORPERazine 10 MG/2 ML Vial 5 MG IV (17:46)
[2024-05-12] MEDS: DiphenhydrAMINE 50 MG/ML Syringe 25 MG IV (17:46)
[2024-05-12 18:00] VITALS: BP 128/80
[2024-05-12 18:05] LABS: Troponin T High Sens 2 HR < 6 ng/L (<=14)
[2024-05-12 18:22] VITALS: BP 130/77; PULSE 66; RESP 17; TEMP 36.6; O2SAT 97
== END 2024-05-12 18:23 | disposition home or self-care (01) ==
PROVIDERS: Emergency Provider Emergency Medicine; Referring Provider Emergency Medicine; Visit Provider Emergency Medicine
DX: R07.89 Other chest pain (principal); R51.9 Headache, unspecified; R11.0 Nausea; F41.9 Anxiety disorder, unspecified; F17.210 Nicotine dependence, cigarettes, uncomplicated
CPT/HCPCS: 71045; 80048; 84484; 85025; 93005; 96374; 96375; 99283; A4216; J2405

== ENCOUNTER 2024-10-11 12:11 | Emergency (ER) | payer MEDICAID, SELFPAY ==
[2024-10-11 12:14] VITALS: BP 115/84; PULSE 102; RESP 18; TEMP 36.7; O2SAT 98; BMI 28.2
--- OUTSIDE RECORDS SUMMARY | 2024-10-11 13:07 | XMS RPT_ITS | CCD ---
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 itching and rash - Anti itch therapy of Oral Benydryl recommended as needed - Likely viral etiology discussed with patient - discussed skin care of rash and refrain from scratching preventing skin breaking - follow up with PCP if symptoms persist or worsen Danielle Mckeon NP student TEACHING PROVIDER (Physician/PA/TIRE MOLD TESTER) NOTE OF PERSONAL INVOLVEMENT IN CARE: I have personally seen and examined the patient and performed the medical decision-making components. I have reviewed the Advanced Practice Registered Nurse (TIRE MOLD TESTER) Student's docume (more content not included)... Normal [facility] CNPNon 06-12-2024 CNPN Telephone (4CQ) CATRINA SOSA ([id number]) 1995 [facility] Date Time Provider Department 06/12/24 SELF 4CQ During your visit today, we recorded the following information about you: Tracey Barnes 06/12/2024 10:53 AM Signed Pt needs nexplonon removal and a new one inserted. No order in chart Radha Bruce RN 06/12/2024 11:40 AM Signed Patient was last seen in office on 01/16/23 and Nexplanon removal was ordered at that time. Order has . GARDENIA Saenz Renee, APRN.ROWAN 06/12/2024 1:05 PM Signed Orders filed. Dasia Grider APRN.Radha Albright RN 06/12/2024 1:08 PM Signed PSS: Please contact patient to schedule Nexplanon removal and insertion. Thank you. GARDENIA Saenz Veronica 06/13/2024 3:42 PM Signed Called pt unable to lvm in regards to scheduling appt for Nexplonon. Maryg, Danelle 06/15/2024 10:53 AM Signed Called patient and unable to leave a vm Allergies As of Date: 06/12/2024 (No Known Allergies) Date Reviewed: 02/05/2023 Reviewed by: Nisreen Liu MA - Fully Assessed Reason for Visit: Orders [681] Primary Visit Diagnosis:Nexplanon removal [Z30.46] Other Visit Diagnosis:Nexplanon insertion [Z30.017] Order(s):NEXPLANON REMOVAL [[id number]] Order #: [id number] NEXPLANON INSERTION [[id number]] Order #: [id number] Prescriptions as of 07/03/2024 - etonogestrel (NEXPLANON) 68 mg impl subdermal implant 68 mg by SUBDERMAL route. - fluticasone (FLONASE) 50 mcg/actuation nasal spray Use 1 [place] in each nostril daily at bedtime. BEFORE LYING DOWN FOR BED Problem List As Of Date 06/12/2024 Noted Resolved Active labor [QJP4113] 04/02/2013 01/30/2014 Asthma [J45.909] 07/20/2015 Panic attacks [F41.0] Generalized anxiety disorder [F41.1] 06/11/2014 Tobacco abuse disorder [Z72.0] 06/11/2014 Mild intermittent asthma without complication [*07/20/2015 Encounter Status:Closed by TRACEY BARNES on 07/03/24 [facility] 12 Lead EKGon 05-12-2024 12 Lead EKG [facility] Cardiovascular Services [address] [place] [address] 12 Lead EKG 05/12/24 1510 MR#: [id number] Acct: [id number] Name: CATRINA SOSA Rep #: [id number] : 1995 28 From: Binh Panchal MD Attending Dr: Status: DEP ER Ordering Dr: Elías Yanes MD Date: 05/12/24 Location: ED Sex: F C Admitted: Test Reason : CP Blood Pressure : */* mmHG Vent. Rate : 95 BPM Atrial Rate : 95 BPM P-R Int : 132 ms QRS Dur : 70 ms QT Int : 354 ms P-R-T Axes : 72 64 42 degrees QTcB Int : 444 ms Normal sinus rhythm Normal ECG Confirmed by Binh Panchal ([id number]), news copy editor CHERRI MAYES ([id number]) on 05/13/2024 10:56:23 AM Referred By: Elías Yanes Confirmed By: Binh Panchal 05/13/24 1056 Date Binh Panchal MD CC: Dr. Elías Yanes MD; No Primary Care Physician Signed Normal [facility] Absolute neutrophil countOrd ered By: Elías Yanes on 05-12-2024 Neutrophils (Bld) [#/Vol] 5.7 10*3/uL 2.0-7.7 [facility] Anion gap in Serum or Plasma Ordered By: Elías Yanes on 05-12-2024 Anion gap [Moles/Vol] 11 mmol/L 5-15 [facility] BUN/creatinine ratioOrdered By: Elías Yanes on 05-12-2024 Urea nitrogen/Creatinine [Mass ratio] 7.3 mg/mg Low 10-20 [facility] Basic Metabolic Profile (BMP )on 05-12-2024 BUN/CRE 7.3 RATIO Low 10- [facility] Comment on above: Performed By: #### L 501.4021, L100.0100, L500.2500 #### [facility] [address] [place], [address] Calcium [Mass/Vol] 9.2 mg/dL Normal 7.6-11.0 [facility] Comment on above: Performed By: #### L 501.4021, L100.0100, L500.2500 #### [facility] [address] [place], [address] Chloride [Moles/Vol] 106 mmol/L Normal 98-108 [facility] Comment on above: Performed By: #### L 501.4021, L100.0100, L500.2500 #### [facility] [address] [place], [address] CO2 [Moles/Vol] 22.3 mmol/L Normal 21.0-32.0 [facility] Comment on above: Performed By: #### L 501.4021, L100.0100, L500.2500 #### [facility] [address] [place], [address] Creatinine [Mass/Vol] 0.66 mg/dL Low 0.70-1.20 [facility] Comment on above: Performed By: #### L 501.4021, L100.0100, L500.2500 #### [facility] [address] [place], [address] ECRCL 111.91 ml/min Normal 50-250 [facility] Comment on above: Performed By: #### L 501.4021, L100.0100, L500.2500 #### [facility] [address] [place], [address] GAP 11 Normal 5-15 [facility] Comment on above: Performed By: #### L 501.4021, L100.0100, L500.2500 #### [facility] [address] [place], [address] GFR/1.73 sq M.predicted among non-blacks MDRD (S/P/Bld) [Vol rate/Area] 121 mL/min/{1.73_m2} Normal >60 [facility] Comment on above: Result Comment: mL/m in/1.73m2 CKD-EPI Creatinine Equation (2020) Performed By: #### L 501.4021, L100.0100, L500.2500 #### [facility] [address] [place], [address] Glucose [Mass/Vol] 92 mg/dL Normal 70-99 [facility] Comment on above: Performed By: #### L 501.4021, L100.0100, L500.2500 #### [facility] [address] [place], [address] Potassium [Moles/Vol] 3.9 mmol/L Normal 3.3-5.1 [facility] Comment on above: Performed By: #### L 501.4021, L100.0100, L500.2500 #### [facility] [address] [place], [address] Sodium [Moles/Vol] 139 mmol/L Normal 133-145 [facility] Comment on above: Performed By: #### L 501.4021, L100.0100, L500.2500 #### [facility] [address] [place], [address] Urea nitrogen [Mass/Vol] 5 mg/dL Normal 4-19 [facility] Comment on above: Performed By: #### L 501.4021, L100.0100, L500.2500 #### [facility] [address] [place], [address] Basophil percentageOrdered B y: Elías Yanes on 05-12-2024 Basophils/100 WBC (Bld) 0.4 % 0-1 [facility] CBC W/Diff, Automatedon 05-03-2024 Absolute Lymph 2.57 X10 3/uL Normal 0.83-4.51 [facility] Comment on above: Performed By: #### L 501.4021, L100.0100, L500.2500 #### [facility] [address] [place], [address] Absolute Neut 5.7 X10 3/uL Normal 2.0-7.7 [facility] Comment on above: Performed By: #### L 501.4021, L100.0100, L500.2500 #### [facility] [address] [place], [address] Basophils/100 WBC (Bld) 0.4 % Normal 0-1 [facility] Comment on above: Performed By: #### L 501.4021, L100.0100, L500.2500 #### [facility] [address] [place], [address] Eosinophils/100 WBC (Bld) 2.7 % Normal 0-5 [facility] Comment on above: Performed By: #### L 501.4021, L100.0100, L500.2500 #### [facility] [address] [place], [address] Erythrocyte distribution width (RBC) [Ratio] 12.6 % Normal 11.6-14.6 [facility] Comment on above: Performed By: #### L 501.4021, L100.0100, L500.2500 #### [facility] [address] [place], [address] Hematocrit (Bld) [Volume fraction] 47.2 % High 37-47 [facility] Comment on above: Performed By: #### L 501.4021, L100.0100, L500.2500 #### [facility] [address] [place], [address] Hemoglobin (Bld) [Mass/Vol] 15.9 g/dL High 12.0-15.0 [facility] Comment on above: Performed By: #### L 501.4021, L100.0100, L500.2500 #### [facility] [address] [place], [address] IG% 0.300 Normal 0.0-0.9 [facility] Comment on above: Result Comment: IG% - Immature Granulocytes (promyelocytes, myelocytes and metamyelocytes) > 1% indicates that a LEFT SHIFT is Present. Performed By: #### L 501.4021, L100.0100, L500.2500 #### [facility] [address] [place], [address] Lymphocytes/100 WBC (Bld) 28.2 % Normal 19-41 [facility] Comment on above: Performed By: #### L 501.4021, L100.0100, L500.2500 #### [facility] [address] [place], [address] MCH (RBC) [Entitic mass] 29.7 pg Normal 27.0-32.0 [facility] Comment on above: Performed By: #### L 501.4021, L100.0100, L500.2500 #### [facility] [address] [place], [address] MCHC (RBC) [Mass/Vol] 33.7 g/dL Normal 32-36 [facility] Comment on above: Performed By: #### L 501.4021, L100.0100, L500.2500 #### [facility] [address] [place], [address] MCV (RBC) [Entitic vol] 88.1 fL Normal 81-99 [facility] Comment on above: Performed By: #### L 501.4021, L100.0100, L500.2500 #### [facility] [address] [place], [address] Monocytes/100 WBC (Bld) 5.9 % Normal 0-10 [facility] Comment on above: Performed By: #### L 501.4021, L100.0100, L500.2500 #### [facility] [address] [place], [address] Neutrophils/100 WBC (Bld) 62.5 % Normal 47-70 [facility] Comment on above: Performed By: #### L 501.4021, L100.0100, L500.2500 #### [facility] [address] [place], [address] Nucleated RBC (Bld) [#/Vol] 0 10*3/uL Normal 0-5 [facility] Comment on above: Performed By: #### L 501.4021, L100.0100, L500.2500 #### [facility] [address] [place], [address] Platelet mean volume (Bld) [Entitic vol] 11.2 fL Normal 6.2-12.0 [facility] Comment on above: Performed By: #### L 501.4021, L100.0100, L500.2500 #### [facility] [address] [place], [address] Platelets (Bld) [#/Vol] 337 10*3/uL Normal 150-450 [facility] Comment on above: Performed By: #### L 501.4021, L100.0100, L500.2500 #### [facility] [address] [place], [address] RBC (Bld) [#/Vol] 5.36 10*6/uL Normal 4.2-5.4 [facility] Comment on above: Performed By: #### L 501.4021, L100.0100, L500.2500 #### [facility] [address] [place], [address] RDW SD 40.9 fl Normal 35.1-43.9 [facility] Comment on above: Performed By: #### L 501.4021, L100.0100, L500.2500 #### [facility] [address] [place], [address] WBC (Bld) [#/Vol] 9.1 10*3/uL Normal 4.4-11.0 [facility] Comment on above: Performed By: #### L 501.4021, L100.0100, L500.2500 #### [facility] [address] [place], [address] Carbon dioxide, total [Moles /volume] in Central venous bloodOrdered By: Elías Yanes on 05-12-2024 CO2 [Moles/Vol] 22.3 mmol/L 21.0-32.0 [facility] Chest 1 View (Portable)on Chest 1 View (Portable) [facility] Imaging Services [address] [place] [address] Chest 1 View (Portable) MR#: [id number] Acct: [id number] Name: CATRINA SOSA Rep #: [id number] : 1995 F 28 From: Loki Maciel MD PCP: Care Physician,No Primary Status: PRE ER Study: Chest 1 View (Portable) Date of Exam: 05/12/24 Exam# [id number] Ordering Dr: Elías Yanes MD EXAM: XR Chest, 1 View CLINICAL INDICATION: CHEST PAIN TECHNIQUE: Frontal view of the chest. COMPARISON: No relevant prior studies available. FINDINGS: LUNGS AND PLEURAL SPACES: Unremarkable. No consolidation. No pneumothorax. HEART: Unremarkable. No cardiomegaly. MEDIASTINUM: Unremarkable. Normal mediastinal contour. BONES/JOINTS: Unremarkable. No acute fracture. RAD/Chest 1 View (Portable) IMPRESSION: No acute cardiopulmonary process. Reading Location: [facility] CC: Dr. Elías Yanes MD; No Primary Care Physician Social Services Manager: Signed Normal [facility] Chloride assayOrdered By: Wally Yanes on 05-12-2024 Chloride [Moles/Vol] 106 mmol/L 98-108 [facility] Emergency Department Summary on 05-12-2024 Emergency Department Summary [facility] Medical Records Department [address] [place] [address] Emergency Department Summary 05/12/24 MR#: [id number] Acct: [id number] Name: CATRINA SOSA Rep #: [id number] : 1995 28 From: Elías Yanes MD PCP: Care Physician,No Primary Status:DEP ER Location: ED HPI History of Present Illness Chief Complaint: Chest Pain Narrative Narrative: 28-year-old female with PMH of tobacco use and anxiety presents with chest pain that started while she was driving and talking to her mom on the phone around 2 PM. She reports a sharp squeezing chest pain in the center of her chest. She felt like it was hard to take a deep breath but she was not short of breath. The pain moved towards her right lower rib cage and down her right arm with tingling in the hand. She then developed a migraine and nausea without vomiting. She states she has had panic attacks but this feels different. She is not on any medications. She smokes 1 pack about every 2 to 3 days. She has no history of DVT/PE, leg pain or swelling, recent surgery or travel, cough or hemoptysis, or hormone use. She has no personal cardiac history. Her mother had a CABG in her 40s and has PAD. [facility] Medical History (Updated 05/12/24 @ 18:14 by SHERRI Quijano) Kidney stones Endometriosis determined by laparoscopy Physical exam, pre-employment Home Medications ???Medication ???Instructions ???Recorded ???Last Taken ???Type hydrocodone-acetamino phen 5-325mg 1 tab PO Q6H PRN PRN Pain 3 days 06/09/23 Unknown Rx 5mg-325mg #10 TABLETS ondansetron 4 mg disintegrating 4 mg PO Q8H PRN PRN Nausea #10 tab s 06/09/23 Unknown Rx tablet Allergy/AdvReac Type Severity Reaction Status Date / Time No Known Allergies Allergy Verified 05/12/24 15:05 Surgical History (Updated 06/09/23 @ 13:[address] Jimenez Payton, ) Hx of tonsillectomy S/P lumpectomy, left breast Social History Smoking Status: Current every day smoker tobacco type: cigarettes ROS ROS ED ROS Narrative Constitutional: Negative for fever, chills, malaise. CVS: Positive for chest pain. No negative for palpitations, syncope. Respiratory: Negative for shortness of breath, cough, orthopnea. GI: Negative for abdominal pain, vomiting. EXAM Physical Exam Narrative Exam Narrative: CONST: Patient sitting in no acute distress. EYES: Normal inspection. NECK: Normal inspection. RESP: No respiratory distress, CTAB. CVS: Regular rate and rhythm, no murmur, no gallop. Tender to palpation over right lower anterior chest, no deformity or crepitus, no skin changes. ABD: Soft and nontender, no guarding or rebound, nondistended, no hepatosplenomegaly. SKIN: Color normal, no rash, warm, dry, intact. EXTREMITIES: Normal appearance, no pedal edema. No calf tenderness NEURO: Alert and answering questions appropriately. PSYCH: Crying and anxious. Const Vital Signs: 05/12/24 15:05 05/12/24 16:26 05/12/24 16:27 Temperature 98 F Temperature Source Oral Pulse Rate 99 74 Respiratory Rate 20 H 21 H Respiratory Effort Normal Blood Pressure 143/100 H 141/83 H Blood Pressure Mean 114 102 Pulse Ox 100 97 Oxygen Delivery Method Room Air 05/12/24 17:00 05/12/24 18:00 05/12/24 18:22 Temperature 97.8 F Temperature Source Pulse Rate 75 66 Respiratory Rate 17 17 Respiratory Effort Blood Pressure 131/86 H 128/80 H 130/77 H Blood Pressure Mean 101 96 94 Pulse Ox 97 97 Oxygen Delivery Method Physical Exam Const Vital Signs: 05/12/24 15:05 05/12/24 16:26 05/12/24 16:27 Temperature 98 F Temperature Source Oral Pulse Rate 99 74 Respiratory Rate 20 H 21 H Respiratory Effort Normal Blood Pressure 143/100 H 141/83 H Blood Pressure Mean 114 102 Pulse Ox 100 97 Oxygen Delivery Method Room Air 05/12/24 17:00 05/12/24 18:00 05/12/24 18:22 Temperature 97.8 F Temperature Source Pulse Rate 75 66 Respiratory Rate 17 17 Respiratory Effort Blood Pressure 131/86 H 128/80 H 130/77 H Blood Pressure Mean 101 96 94 Pulse Ox 97 97 Oxygen Delivery Method MDM MDM MDM Narrative Medical decision making narrative: Differential includes but not limited to ACS, GERD, PE, anxiety, musculoskeletal 28-year-old female presents with chest pain that started at rest. Also complains of nausea and headache. She appears anxious and nontoxic. She was initially slightly hypertensive at 143/100 with otherwise stable vital signs. She has normal cardiopulmonary exam. There is reproducible tenderness of the right chest wall. No abdominal tenderness. No skin changes or signs of zoster. Regarding her headache she has a normal neurolo (more content not included)... Normal [facility] Eosinophil percentageOrdered By: Elías Yanes on 05-12-2024 Eosinophils/100 WBC (Bld) 2.7 % 0-5 [facility] Erythrocyte distribution wid th ratioOrdered By: Elías Yanes on 05-12-2024 Erythrocyte distribution width (RBC) [Ratio] 12.6 % 11.6-14.6 [facility] Erythrocyte distribution wid th standard deviationOrdered By: Elías Yanes on 05-12-2024 Erythrocyte distribution width (RBC) [Entitic vol] 40.9 fL 35.1-43.9 [facility] Estimation of creatinine jorge aranceOrdered By: Elías Yanes on 05-12-2024 Estimated Creatinine Clearance Calc 111.91 ml/min 50-250 [facility] GFR/1.73 sq M.predicted darcy g non-blacks MDRD (S/P/Bld) [Vol rate/Area]Ordered By: Elías Yanes on 05-12-2024 Estimated GFR (MDRD) Non-Af Amer 121 >60 [facility] Comment on above: mL/min/1.73m2 CKD-EP I Creatinine Equation (2020) Hematocrit Auto (Bld) [Volum e fraction]Ordered By: Elías Yanes on 05-12-2024 Hematocrit (Bld) [Volume fraction] 47.2 % High 37-47 [facility] Hemoglobin measurementOrdere d By: Elías Yanes on 05-12-2024 Hemoglobin (Bld) [Mass/Vol] 15.9 g/dL High 12.0-15.0 [facility] Immature granulocytes/100 WB C Auto (Bld)Ordered By: Elías Yanes on 05-12-2024 Immature granulocytes/100 WBC (Bld) 0.300 % 0.0-0.9 [facility] Comment on above: IG% - Immature Granu locytes (promyelocytes, myelocytes and metamyelocytes) > 1% indicates that a LEFT SHIFT is Present. L499.0042on 05-12-2024 Trop T High Sen < 6 Normal <=14 [facility] Comment on above: Performed By: #### L 499.0042 ####[facility] [address] [place], [address] L499.0043on 05-12-2024 Trop T High Sen Normal <=14 [facility] Comment on above: Result Comment: Canc elled via OM: Order cancelled - Patient discharged Performed By: #### L 499.0043 #### [facility] [address] [place], [address] L501.4021on 05-12-2024 Trop T High Sen 12 ng/L Normal <=14 [facility] Comment on above: Performed By: #### L 501.4021, L100.0100, L500.2500 ####[facility] [address] [place], [address] Lymphocytes Auto (Unsp spec) [#/Vol]Ordered By: Elías Yanes on 05-12-2024 Lymphocytes (Bld) [#/Vol] 2.57 10*3/uL 0.83-4.51 [facility] Lymphocytes/100 WBC Auto (Un sp spec)Ordered By: Elías Yanes on 05-12-2024 Lymphocytes/100 WBC (Bld) 28.2 % 19-41 [facility] MCV (mean corpuscular volume ) determinationOrdered By: Elías Yanes on 05-12-2024 MCV (RBC) [Entitic vol] 88.1 fL 81-99 [facility] Mean corpuscular hemoglobin (MCH) determinationOrdered By: Elías Yanes on 05-12-2024 MCH (RBC) [Entitic mass] 29.7 pg 27.0-32.0 [facility] Mean corpuscular hemoglobin concentration (MCHC) determinationOrdered By: Elías Yanes on 05-12-2024 MCHC (RBC) [Mass/Vol] 33.7 g/dL 32-36 [facility] Mean platelet volume determi nationOrdered By: Elías Yanes on 05-12-2024 Platelet mean volume (Bld) [Entitic vol] 11.2 fL 6.2-12.0 [facility] Monocyte percentageOrdered B y: Elías Yanes on 05-12-2024 Monocytes/100 WBC (Bld) 5.9 % 0-10 [facility] Neutrophil percentageOrdered By: Elías Yanes on 05-12-2024 Neutrophils/100 WBC (Bld) 62.5 % 47-70 [facility] No Panel InformationOrdered By: Elías Yanes on 05-12-2024 Troponin T High Sensitivity 12 ng/L <14 [facility] Nucleated red blood cell per centageOrdered By: Elías Yanes on 05-12-2024 Nucleated RBC/100 WBC (Bld) [Ratio] 0 % 0-5 [facility] Platelet countOrdered By: Wally Yanes on 05-12-2024 Platelets (Bld) [#/Vol] 337 10*3/uL 150-450 [facility] Potassium (Unsp spec) [Mass/ Vol]Ordered By: Elías Yanes on 05-12-2024 Potassium [Moles/Vol] 3.9 mmol/L 3.3-5.1 [facility] RBC Auto (Bld) [#/Vol]Ordere d By: Elías Yanes on 05-12-2024 RBC (Bld) [#/Vol] 5.36 10*6/uL 4.2-5.4 [facility] Serum creatinine measurement (mass/volume)Ordered By: Elías Yanes on 05-12-2024 Creatinine [Mass/Vol] 0.66 mg/dL Low 0.70-1.20 [facility] Serum glucose measurement (m ass/volume)Ordered By: Elías Yanes on 05-12-2024 Glucose [Mass/Vol] 92 mg/dL 70-99 [facility] Serum or plasma calcium thong urement (mass/volume)Ordered By: Elías Yanes on 05-12-2024 Calcium [Mass/Vol] 9.2 mg/dL 7.6-11.0 [facility] Serum or plasma urea nitroge n measurement (mass/volume)Ordered By: Elías Yanes on 05-12-2024 Urea nitrogen [Mass/Vol] 5 mg/dL 4-19 [facility] Sodium levelOrdered By: Elías Yanes on 05-12-2024 Sodium [Moles/Vol] 139 mmol/L 133-145 [facility] Troponin T.cardiac High sens itivity method [Mass/Vol]Ordered By: Elías Yanes on 05-12-2024 Troponin T High Sensitivity 2 Hour < 6 ng/L <14 [facility] White blood cell (WBC) count Ordered By: Elías Yanes on 05-12-2024 WBC (Bld) [#/Vol] 9.1 10*3/uL 4.4-11.0 [facility] Abdomen/Pelvis without Conto n 01-06-2024 Abdomen/Pelvis without Cont [facility] Imaging Services [address] [place], [place] [address] Abdomen/Pelvis without Cont MR#: [id number] Acct: [id number] Name: CATRINA SOSA Rep #: [id number] : 1995 F 28 From: Femi Murphy PCP: Care Physician,No Primary Status: REG ER Study: Abdomen/Pelvis without Cont Date of Exam: 05/26 Exam# [id number] Ordering Dr: Marleni Handley [id number] EXAM: CT ABDOMEN AND PELVIS WITHOUT INTRAVENOUS CONTRAST CLINICAL INDICATION: right flank pain TECHNIQUE: Helically acquired images were obtained of the abdomen and pelvis without intravenous contrast. This CT exam was performed using one or more of the following dose reduction techniques: automated exposure control, adjustment of the mA and/or kV according to patient size, and/or use of iterative reconstruction technique. RADIATION DOSE: CTDIvol = 7.48 mGy, DLP = 386.79 mGy-cm COMPARISON: 06/09/2023 FINDINGS: LOWER THORAX: Unremarkable. Lung bases are clear. No cardiomegaly. No significant pericardial effusion. ABDOMEN: LIVER: Unremarkable. Homogeneous. GALLBLADDER AND BILE DUCTS: Unremarkable. No calcified gallstones. No gallbladder distention or wall edema. No intra- or extrahepatic biliary ductal dilation. PANCREAS: Unremarkable. No focal cystic mass. SPLEEN: Unremarkable. Normal size without focal cystic or solid mass. ADRENALS: Unremarkable. No nodules. KIDNEYS AND URETERS: 2 mm nonobstructive right renal stone. Normal renal size and position. STOMACH AND BOWEL: Unremarkable. No stomach or bowel distention. No focal inflammatory change. PELVIS: APPENDIX: Unremarkable appearance of the appendix. BLADDER: Unremarkable. REPRODUCTIVE: Unremarkable uterus. ABDOMEN and PELVIS: INTRAPERITONEAL SPACE: Unremarkable. No ascites or other fluid collection. No free air. BONES/JOINTS: Unremarkable. No suspicious lytic or blastic abnormality. SOFT TISSUES: Umbilical hernia containing fat. VASCULATURE: Unremarkable. Abdominal aorta is non-dilated. LYMPH NODES: Unremarkable. No enlarged lymph nodes. CT/Abdomen/Pelvis without Cont IMPRESSION: 1. 2 mm nonobstructive right renal stone. 2. Umbilical hernia containing fat. Electronically Signed: Femi Ventura MD at 19:01 EST , CC: SHERRI Quijano; No Primary Care Physician Social Services Manager: Signed Normal [facility] Basic Metabolic Profile (BMP )on 01-06-2024 BUN/CRE 13.7 RATIO Normal 10-20 [facility] Comment on above: Performed By: #### L 100.0100, L500.2500 ####[facility] [address] [place], [address] CA,Total 9.1 mg/dL Normal 8.5-10.1 [facility] Comment on above: Performed By: #### L 100.0100, L500.2500 ####[facility] [address] [place], [address] Chloride [Moles/Vol] 110 mmol/L High 98-107 [facility] Comment on above: Performed By: #### L 100.0100, L500.2500 ####[facility] [address] [place], [address] CO2 [Moles/Vol] 26.0 mmol/L Normal 21.0-32.0 [facility] Comment on above: Performed By: #### L 100.0100, L500.2500 ####[facility] [address] [place], [address] Creatinine [Mass/Vol] 0.66 mg/dL Normal 0.55-1.02 [facility] Comment on above: Result Comment: The validity of the calculated GFR GFRAA in patients over 70 years has not been determined. Clinical correlation is essential. Performed By: #### L 100.0100, L500.2500 ####[facility] [address] [place], [address] ECRCL 113.34 ml/min Normal [facility] Comment on above: Performed By: #### L 100.0100, L500.2500 ####[facility] [address] [place], [address] EST GFR - AA 136 mL/min Normal >60 [facility] Comment on above: Result Comment: Afri can Angolan GFR Calc Performed By: #### L 100.0100, L500.2500 ####[facility] [address] [place], [address] GAP 5 Normal 5-15 [facility] Comment on above: Performed By: #### L 100.0100, L500.2500 ####[facility] [address] [place], [address] GFR/1.73 sq M.predicted among non-blacks MDRD (S/P/Bld) [Vol rate/Area] 112 mL/min/{1.73_m2} Normal >60 [facility] Comment on above: Result Comment: Non- GFR Calc Performed By: #### L 100.0100, L500.2500 ####[facility] [address] [place], [address] Glucose [Mass/Vol] 93 mg/dL Normal 74-106 [facility] Comment on above: Performed By: #### L 100.0100, L500.2500 ####[facility] [address] [place], [address] Potassium [Moles/Vol] 3.7 mmol/L Normal 3.5-5.1 [facility] Comment on above: Performed By: #### L 100.0100, L500.2500 ####[facility] [address] [place], [address] Sodium [Moles/Vol] 140 mmol/L Normal 136-145 [facility] Comment on above: Performed By: #### L 100.0100, L500.2500 ####[facility] [address] [place], [address] Urea nitrogen [Mass/Vol] 9 mg/dL Normal 7-18 [facility] Comment on above: Performed By: #### L 100.0100, L500.2500 ####[facility] [address] [place], [address] CBC W/Diff, Automatedon 11-0 3-2024 Absolute Lymph 2.30 X10 3/uL Normal 0.83-4.51 [facility] Comment on above: Performed By: #### L 100.0100, L500.2500 ####[facility] [address] [place], [address] Absolute Neut 6.5 X10 3/uL Normal 2.0-7.7 [facility] Comment on above: Performed By: #### L 100.0100, L500.2500 ####[facility] [address] [place], [address] Basophils/100 WBC (Bld) 0.3 % Normal 0-1 [facility] Comment on above: Performed By: #### L 100.0100, L500.2500 ####[facility] [address] [place], [address] Eosinophils/100 WBC (Bld) 2.5 % Normal 0-5 [facility] Comment on above: Performed By: #### L 100.0100, L500.2500 ####[facility] [address] [place], [address] Erythrocyte distribution width (RBC) [Ratio] 12.6 % Normal 11.6-14.6 [facility] Comment on above: Performed By: #### L 100.0100, L500.2500 ####[facility] [address] [place], [address] Hematocrit (Bld) [Volume fraction] 46.0 % Normal 37-47 [facility] Comment on above: Performed By: #### L 100.0100, L500.2500 ####[facility] [address] [place], [address] Hemoglobin (Bld) [Mass/Vol] 14.9 g/dL Normal 12.0-15.0 [facility] Comment on above: Performed By: #### L 100.0100, L500.2500 ####[facility] [address] [place], [address] IG% 0.300 Normal 0.0-0.9 [facility] Comment on above: Result Comment: IG% - Immature Granulocytes (promyelocytes, myelocytes and metamyelocytes) > 1% indicates that a LEFT SHIFT is Present. Performed By: #### L 100.0100, L500.2500 ####[facility] [address] [place], [address] Lymphocytes/100 WBC (Bld) 23.6 % Normal 19-41 [facility] Comment on above: Performed By: #### L 100.0100, L500.2500 ####[facility] [address] [place], [address] MCH (RBC) [Entitic mass] 28.6 pg Normal 27.0-32.0 [facility] Comment on above: Performed By: #### L 100.0100, L500.2500 ####[facility] [address] [place], [address] MCHC (RBC) [Mass/Vol] 32.4 g/dL Normal 32-36 [facility] Comment on above: Performed By: #### L 100.0100, L500.2500 ####[facility] [address] [place], [address] MCV (RBC) [Entitic vol] 88.3 fL Normal 81-99 [facility] Comment on above: Performed By: #### L 100.0100, L500.2500 ####[facility] [address] [place], [address] Monocytes/100 WBC (Bld) 7.0 % Normal 0-10 [facility] Comment on above: Performed By: #### L 100.0100, L500.2500 ####[facility] [address] [place], [address] Neutrophils/100 WBC (Bld) 66.3 % Normal 47-70 [facility] Comment on above: Performed By: #### L 100.0100, L500.2500 ####[facility] [address] [place], [address] Nucleated RBC (Bld) [#/Vol] 0 10*3/uL Normal 0-5 [facility] Comment on above: Performed By: #### L 100.0100, L500.2500 ####[facility] [address] [place], [address] Platelet mean volume (Bld) [Entitic vol] 10.5 fL Normal 6.2-12.0 [facility] Comment on above: Performed By: #### L 100.0100, L500.2500 ####[facility] [address] [place], [address] Platelets (Bld) [#/Vol] 333 10*3/uL Normal 150-450 [facility] Comment on above: Performed By: #### L 100.0100, L500.2500 ####[facility] [address] [place], [address] RBC (Bld) [#/Vol] 5.21 10*6/uL Normal 4.2-5.4 [facility] Comment on above: Performed By: #### L 100.0100, L500.2500 ####[facility] [address] [place], [address] RDW SD 41.1 fl Normal 35.1-43.9 [facility] Comment on above: Performed By: #### L 100.0100, L500.2500 ####[facility] [address] [place], [address] WBC (Bld) [#/Vol] 9.7 10*3/uL Normal 4.4-11.0 [facility] Comment on above: Performed By: #### L 100.0100, L500.2500 ####[facility] [address] [place], [address] Emergency Department Summary on 01-06-2024 Emergency Department Summary [facility] Medical Records Department [address] [place] [address] Emergency Department Summary 01/06/24 MR#: [id number] Acct: [id number] Name: CATRINA SOSA Rep #: [id number] : 1995 28 From: Yannick Irizarry MD PCP: Care Physician,No Primary Status:REG ER Location: ED HPI History of Present Illness Chief Complaint: Complaint Narrative Narrative: 28-year-old female with past medical history of kidney stones presents with right flank pain. 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 However, the pain became more severe last night and woke her from sleep and this morning around 11 AM it caused her to vomit. Pain is radiating around to her right groin. She also has urinary frequency and burning. No vaginal discharge. No fever or chills. She has had kidney stones multiple times in the past but never required surgery. She was seeing a urologist in [place] and was told they were calcium stones and to cut out soda which did help but she started drinking it again recently. [facility] Medical History (Updated 01/06/24 @ 19:03 by SHERRI Quijano) Kidney stones Endometriosis determined by laparoscopy Physical exam, pre-employment Home Medications ???Medication ???Instructions ???Recorded ???Last Taken ???Type hydrocodone-acetamino phen 5-325mg 1 tab PO Q6H PRN PRN Pain 3 days 06/09/23 Unknown Rx 5mg-325mg #10 TABLETS ondansetron 4 mg disintegrating 4 mg PO Q8H PRN PRN Nausea #10 tabs 06/09/23 Unknown Rx tablet Allergy/AdvReac Type Severity Reaction Status Date / Time No Known Allergies Allergy Verified 01/06/24 17:07 Surgical History (Updated 06/09/23 @ 13:[address] Jimenez Payton DO) Hx of tonsillectomy S/P lumpectomy, left breast Social History Smoking Status: Current every day smoker tobacco type: cigarettes ROS ROS ED ROS Narrative Constitutional: Negative for fever, chills, malaise. CVS: Negative for chest pain. Respiratory: Negative for shortness of breath, cough. GI: Positive for abdominal pain, nausea, vomiting. Negative for diarrhea, constipation, melena, hematochezia. : Positive for dysuria. EXAM Physical Exam Narrative Exam Narrative: CONST: Patient sitting in no acute distress. EYES: Normal inspection. ENT: Normal inspection, moist mucous membranes. NECK: Normal inspection. RESP: No respiratory distress, CTAB. CVS: Regular rate and rhythm, no murmur, no gallop. ABD: Soft and nontender, no guarding or rebound, nondistended. Back: Normal inspection, right CVA tenderness. SKIN: Color normal, no rash, warm, dry, intact. EXTREMITIES: Normal appearance, no pedal edema. NEURO: Alert and answering questions appropriately. PSYCH: Normal affect. Const Vital Signs: 01/06/24 17:06 Temperature 98 F Temperature Source Temporal Pulse Rate 81 Respiratory Rate 17 Blood Pressure 140/89 H Blood Pressure Mean 106 Pulse Ox 100 Oxygen Delivery Method Room Air Physical Exam Const Vital Signs: 01/06/24 17:06 Temperature 98 F Temperature Source Temporal Pulse Rate 81 Respiratory Rate 17 Blood Pressure 140/89 H Blood Pressure Mean 106 Pulse Ox 100 Oxygen Delivery Method Room Air MDM MDM MDM Narrative Medical decision making narrative: Differential includes but not limited to: UTI, pyelonephritis, kidney stone, muscle pain Patient has right flank pain. She appears well and nontoxic and is hemodynamically stable. She has CVA tenderness on exam. Soft, nontender benign abdomen. Basic labs and urinalysis are normal. There is no hematuria or infection. test negative. Due to her history of stones a CT scan was obtained which shows no acute process. There is a small nonobstructive stone which is unchanged from previous. Patient was treated with Toradol and advised to take bllc-pwm-fnpyszk pain relievers at home. At this time I am not sure what the etiology of her right flank pain is. She was discharged in stable condition Lab Data Labs: Laboratory Results - last 24 hr 01/06/24 01/06/24 17:33 17:45 WBC 9.7 RBC 5.21 Hgb 14.9 Hct 46.0 MCV 88.3 MCH 28.6 MCHC 32.4 RDW Std Deviation 41.1 RDW Coeff of Shankar 12.6 Plt Count 333 MPV 10.5 Immature Gran % (Auto) 0.300 Neut % (Auto) 66.3 Lymph % (Auto) 23.6 [place] % (Auto) 7.0 Eos % (Auto) 2.5 Baso % (Auto) 0.3 Absolute Neuts (auto) 6.5 Absolute Lymphs (auto) 2.30 Nucleated RBC % 0 Sodium 140 Potassium 3.7 Chloride 110 H Carbon Dioxide 26.0 Anion Gap 5 BUN 9 Creatinine 0.66 Estim Creat Clear Calc 113.34 Est GFR (MDRD) Af Amer 136 Est GFR (MDRD) (more content not included)... Normal [facility] ,Urineon 01-06-2024 Beta HCG ( test) Ql (U) Negative Normal [facility] Comment on above: Order Comment: COLLE CTOR TO SPECIFY Result Comment: Very dilute urine specimens, as indicated by a low specific gravity, may not contain sales representatives levels of hCG. If is still suspected, a first morning urine specimen should be collected 48 hours later and tested. Performed By: #### L 400.0001, L400.7600 ####[facility] [address] [place], [address] Urinalysis, Completeon 01-05 BACTERIA RARE Normal None Seen [facility] Comment on above: Order Comment: COLLE CTOR TO SPECIFY Performed By: #### L 400.0001, L400.7600 ####[facility] [address] [place], [address] WBC 0-5 SEEN Normal 0-5 [facility] Comment on above: Order Comment: COLLE CTOR TO SPECIFY Performed By: #### L 400.0001, L400.7600 ####[facility] [address] [place], [address] EPI,SQUAMOUS 0 SEEN Normal 5-10 [facility] Comment on above: Order Comment: [facility] CTOR TO SPECIFY Performed By: #### L 400.0001, L400.7600 ####[facility] [address] [place], [address] Mucus Ql (Urine sed) 0 SEEN Normal [facility] Comment on above: Order Comment: [facility] CTOR TO SPECIFY Performed By: #### L 400.0001, L400.7600 ####[facility] [address] [place], [address] RBC 0 SEEN Normal 0-5 [facility] Comment on above: Order Comment: [facility] CTOR TO SPECIFY Performed By: #### L 400.0001, L400.7600 ####[facility] [address] [place], [address] Abdomen/Pelvis without Conto n 06-09-2023 Abdomen/Pelvis without Cont [facility] Imaging Services [address] [place] [address] Abdomen/Pelvis without Cont MR#: [id number] Acct: [id number] Name: CATRINA SOSA Rep #: [id number] : 1995 F 28 From: Femi Murphy PCP: Care Physician,No Primary Status: REG ER Study: Abdomen/Pelvis without Cont Date of Exam: 08/26 Exam# [id number] Ordering Dr: Jimenez Payton DO [id number] STUDY: CT Abdomen And Pelvis W/O Contrast Injection 06/09/2023 3:27 PM REASON FOR EXAM: Female, 28 years old. ABDOMINAL PAIN Right flank pain TECHNIQUE: Transaxial images were obtained without oral contrast, and without intravenous contrast. Individualized dose optimization techniques were used for this CT. COMPARISON: None FINDINGS: The visualized lung bases are unremarkable. The visualized portions of the heart are within normal limits. Unremarkable liver. Unremarkable gallbladder and extrahepatic biliary system. Unremarkable spleen. Unremarkable pancreas. Unremarkable bilateral adrenal glands. Non obstructive 2 mm right renal parenchymal stones. No acute findings of the left kidney. Unremarkable visualized stomach. Unremarkable small intestine. Unremarkable colon. The appendix is visualized and appears unremarkable. There are no acute findings of the abdominal aorta. Unremarkable inferior vena cava. Subcentimeter mesenteric lymph nodes. Unremarkable urinary bladder. Normal visualized uterus. There is an umbilical hernia containing fat. Unremarkable osseous structures. CT/Abdomen/Pelvis without Cont IMPRESSION: (NOT LISTED IN ORDER OF SIGNIFICANCE) Nonobstructive right renal stone. Other findings as above. Electronically Signed: Femi Ventura MD at 15:29 EDT Reading Location ID and State: [facility] / [place] , Service support , CC: Dr. Jimenez Payton DO; No Primary Care Physician Social Services Manager: Signed Normal [facility] Absolute lymphocyte countOrd ered By: Jimenez Payton on 06-09-2023 Lymphocytes Auto (Unsp spec) [#/Vol] 2.05 10*3/uL 0.83-4.51 [facility] Automated lymphocyte count a s percentage of total leukocytesOrdered By: Jimenez Payton on 06-09-2023 Lymphocytes/100 WBC Auto (Unsp spec) 26.2 % 19-41 [facility] Basic Metabolic Profile (BMP )on 06-09-2023 BUN/CRE 7.7 RATIO Low 10-20 [facility] Comment on above: Performed By: #### L 100.0100, L700.6800, L500.2500 ####[facility] [address] [place], [address] CA,Total 9.1 mg/dL Normal 8.5-10.1 [facility] Comment on above: Performed By: #### L 100.0100, L700.6800, L500.2500 ####[facility] [address] [place], [address] Chloride [Moles/Vol] 109 mmol/L High 98-107 [facility] Comment on above: Performed By: #### L 100.0100, L700.6800, L500.2500 ####[facility] [address] [place], [address] CO2 [Moles/Vol] 26.0 mmol/L Normal 21.0-32.0 [facility] Comment on above: Performed By: #### L 100.0100, L700.6800, L500.2500 ####[facility] [address] [place], [address] Creatinine [Mass/Vol] 0.78 mg/dL Normal 0.55-1.02 [facility] Comment on above: Result Comment: The validity of the calculated GFR GFRAA in patients over 70 years has not been determined. Clinical correlation is essential. Performed By: #### L 100.0100, L700.6800, L500.2500 ####[facility] [address] [place], [address] ECRCL 98.23 ml/min Normal [facility] Comment on above: Performed By: #### L 100.0100, L700.6800, L500.2500 ####[facility] [address] [place], [address] EST GFR - AA 111 mL/min Normal >60 [facility] Comment on above: Result Comment: Afri can Angolan GFR Calc Performed By: #### L 100.0100, L700.6800, L500.2500 ####[facility] [address] [place], [address] GAP 3 Low 5-15 [facility] Comment on above: Performed By: #### L 100.0100, L700.6800, L500.2500 ####[facility] [address] [place], [address] GFR/1.73 sq M.predicted among non-blacks MDRD (S/P/Bld) [Vol rate/Area] 92 mL/min/{1.73_m2} Normal >60 [facility] Comment on above: Result Comment: Non- GFR Calc Performed By: #### L 100.0100, L700.6800, L500.2500 ####[facility] [address] [place], [address] Glucose [Mass/Vol] 101 mg/dL Normal 74-106 [facility] Comment on above: Result Comment: Fast ing Glucose result from 100 to 125 mg/dL suggests IMPAIRED HOMEOSTASIS per A.D.A. criteria. Performed By: #### L 100.0100, L700.6800, L500.2500 ####[facility] [address] [place], [address] Potassium [Moles/Vol] 3.7 mmol/L Normal 3.5-5.1 [facility] Comment on above: Performed By: #### L 100.0100, L700.6800, L500.2500 ####[facility] [address] [place], [address] Sodium [Moles/Vol] 138 mmol/L Normal 136-145 [facility] Comment on above: Performed By: #### L 100.0100, L700.6800, L500.2500 ####[facility] [address] [place], [address] Urea nitrogen [Mass/Vol] 6 mg/dL Low 7-18 [facility] Comment on above: Performed By: #### L 100.0100, L700.6800, L500.2500 ####[facility] [address] [place], [address] Basophil percentageOrdered B y: Jimenez Payton on 06-09-2023 Basophil percentage 0 SEEN /hpf 0-5 [facility] Basophils/100 WBC (Bld) 0.3 % 0-1 [facility] Chloride [Moles/Vol] 109 mmol/L 98-107 [facility] Eosinophils/100 WBC (Bld) 2.4 % 0-5 [facility] Glucose [Mass/Vol] 101 mg/dL 74-106 [facility] Comment on above: Fasting Glucose resu lt from 100 to 125 mg/dL suggests IMPAIRED HOMEOSTASIS per A.D.A. criteria. Hemoglobin (Bld) [Mass/Vol] 16.0 g/dL 12.0-15.0 [facility] Monocytes/100 WBC (Bld) 7.7 % 0-10 [facility] Neutrophils (Bld) [#/Vol] 5.0 10*3/uL 2.0-7.7 [facility] Neutrophils/100 WBC (Bld) 63.3 % 47-70 [facility] Potassium [Moles/Vol] 3.7 mmol/L 3.5-5.1 [facility] Sodium [Moles/Vol] 138 mmol/L 136-145 [facility] WBC (Bld) [#/Vol] 7.8 10*3/uL 4.4-11.0 [facility] Bilirubin Test strip Ql (U)O rdered By: Jimenez Payton on 06-09-2023 Bilirubin Ql (U) Negative Negative [facility] CBC W/Diff, Automatedon 04-0 Absolute Lymph 2.05 X10 3/uL Normal 0.83-4.51 [facility] Comment on above: Performed By: #### L 100.0100, L700.6800, L500.2500 ####[facility] [address] [place], [address] Absolute Neut 5.0 X10 3/uL Normal 2.0-7.7 [facility] Comment on above: Performed By: #### L 100.0100, L700.6800, L500.2500 ####[facility] [address] [place], [address] Basophils/100 WBC (Bld) 0.3 % Normal 0-1 [facility] Comment on above: Performed By: #### L 100.0100, L700.6800, L500.2500 ####[facility] [address] [place], [address] Eosinophils/100 WBC (Bld) 2.4 % Normal 0-5 [facility] Comment on above: Performed By: #### L 100.0100, L700.6800, L500.2500 ####[facility] [address] [place], [address] Erythrocyte distribution width (RBC) [Ratio] 12.9 % Normal 11.6-14.6 [facility] Comment on above: Performed By: #### L 100.0100, L700.6800, L500.2500 ####[facility] [address] [place], [address] Hematocrit (Bld) [Volume fraction] 47.7 % High 37-47 [facility] Comment on above: Performed By: #### L 100.0100, L700.6800, L500.2500 ####[facility] [address] [place], [address] Hemoglobin (Bld) [Mass/Vol] 16.0 g/dL High 12.0-15.0 [facility] Comment on above: Performed By: #### L 100.0100, L700.6800, L500.2500 ####[facility] [address] [place], [address] IG% 0.100 Normal 0.0-0.9 [facility] Comment on above: Result Comment: IG% - Immature Granulocytes (promyelocytes, myelocytes and metamyelocytes) > 1% indicates that a LEFT SHIFT is Present. Performed By: #### L 100.0100, L700.6800, L500.2500 ####[facility] [address] [place], [address] Lymphocytes/100 WBC (Bld) 26.2 % Normal 19-41 [facility] Comment on above: Performed By: #### L 100.0100, L700.6800, L500.2500 ####[facility] [address] [place], [address] MCH (RBC) [Entitic mass] 29.7 pg Normal 27.0-32.0 [facility] Comment on above: Performed By: #### L 100.0100, L700.6800, L500.2500 ####[facility] [address] [place], [address] MCHC (RBC) [Mass/Vol] 33.5 g/dL Normal 32-36 [facility] Comment on above: Performed By: #### L 100.0100, L700.6800, L500.2500 ####[facility] [address] [place], [address] MCV (RBC) [Entitic vol] 88.7 fL Normal 81-99 [facility] Comment on above: Performed By: #### L 100.0100, L700.6800, L500.2500 ####[facility] [address] [place], [address] Monocytes/100 WBC (Bld) 7.7 % Normal 0-10 [facility] Comment on above: Performed By: #### L 100.0100, L700.6800, L500.2500 ####[facility] [address] [place], [address] Neutrophils/100 WBC (Bld) 63.3 % Normal 47-70 [facility] Comment on above: Performed By: #### L 100.0100, L700.6800, L500.2500 ####[facility] [address] [place], [address] Nucleated RBC (Bld) [#/Vol] 0 10*3/uL Normal 0-5 [facility] Comment on above: Performed By: #### L 100.0100, L700.6800, L500.2500 ####[facility] [address] [place], [address] Platelet mean volume (Bld) [Entitic vol] 10.4 fL Normal 6.2-12.0 [facility] Comment on above: Performed By: #### L 100.0100, L700.6800, L500.2500 ####[facility] [address] [place], [address] Platelets (Bld) [#/Vol] 349 10*3/uL Normal 150-450 [facility] Comment on above: Performed By: #### L 100.0100, L700.6800, L500.2500 ####[facility] [address] [place], [address] RBC (Bld) [#/Vol] 5.38 10*6/uL Normal 4.2-5.4 [facility] Comment on above: Performed By: #### L 100.0100, L700.6800, L500.2500 ####[facility] [address] [place], [address] RDW SD 42.0 fl Normal 35.1-43.9 [facility] Comment on above: Performed By: #### L 100.0100, L700.6800, L500.2500 ####[facility] [address] [place], [address] WBC (Bld) [#/Vol] 7.8 10*3/uL Normal 4.4-11.0 [facility] Comment on above: Performed By: #### L 100.0100, L700.6800, L500.2500 ####[facility] [address] [place], [address] Determination of erythrocyte mean corpuscular volume (MCV)Ordered By: Jimenez Payton on 06-09-2023 MCV (RBC) [Entitic vol] 88.7 fL 81-99 [facility] Emergency Department Summary on 06-09-2023 Emergency Department Summary [facility] Medical Records Department [address] [place] [address] Emergency Department Summary 06/09/23 MR#: [id number] Acct: [id number] Name: CATRINA SOSA Rep #: [id number] : 1995 28 From: Jimenez Payton DO PCP: Care Physician,No Primary Status:DEP ER Location: ED HPI History of Present Illness Chief Complaint: Flank Pain Informant: patient Onset/Context/Timing Onset: Days (2) Context: Gradual Onset Timing: Continuous Quality: Sharp Location: Right flank Worsened by: Nothing Relieved by: Leaning to the right Narrative Narrative: Patient presents with right flank pain that has been getting progressively worse over the past couple days. Patient states he has a history of kidney stones and states this feels similar to prior kidney stones. Patient describes her pain as sharp. Patient states it is better when she leans to the right. Patient admits to some nausea but denies any vomiting. Patient admits to some dysuria, frequency, and hematuria. Patient admits to some subjective fevers last night. Patient denies any chest pain or shortness of breath. [facility] Medical History (Updated 06/09/23 @ 15:[address] Jimenez Payton DO) Endometriosis determined by laparoscopy Kidney stones Physical exam, pre-employment Home Medications hydrocodone-acetamino phen 5-325mg 5mg-325mg 1 tab PO Q6H PRN PRN Pain 3 days #10 TABLETS 06/09/23 [Rx Last Taken Unknown] Allergy/AdvReac Type Severity Reaction Status Date / Time No Known Allergies Allergy Verified 06/09/23 13:45 Surgical History (Updated 06/09/23 @ 13:[address] Jimenez Payton, ) Hx of tonsillectomy S/P lumpectomy, left breast Social History Smoking Status: Current every day smoker tobacco type: cigarettes ROS ROS ED Constitutional Constitutional ED: Reports fever(s) and subjective; Denies chills Eyes Eyes: Denies blurry vision or change in vision ENT ENT ED: Denies rhinorrhea or sore throat Cardiovascular Cardiovascular: Denies chest pain or palpitations Respiratory/Chest Respiratory/Chest: Denies cough or dyspnea Gastrointestinal Gastrointestinal: Reports abdominal pain and nausea; Denies vomiting Genitourinary Genitourinary ED: Reports dysuria, hematuria and urinary frequency Musculoskeletal Musculoskeletal: Reports back pain; Denies neck pain Integumentary Denies abscess or rash Neurologic Neurologic: Denies headache(s) or weakness Allergic/Immunologic Allergic/Immunologic ED: Denies mouth swelling or urticaria EXAM Physical Exam Const Vital Signs: 06/09/23 13:46 Temperature 97 F L Temperature Source Temporal Pulse Rate 95 Respiratory Rate 16 Blood Pressure 141/84 H Blood Pressure Mean 103 Pulse Ox 98 Oxygen Delivery Method Room Air Positive well nourished, well developed and obese General Appearance ED: well developed and NAD Nutritional Appearance: obese HEENT Reports moist mucous membranes Neck supple and no JVD Resp normal respiratory effort and clear to auscultation bilaterally Cardio regular rate and regular rhythm GI non-distended Palpation: soft and tender RLQ; Negative for guarding or rebound tenderness present Back/Spine General Back: CVA tenderness right Neuro oriented x3, CN's II-XII intact bilaterally and no sensory deficits noted Sensorium / Orientation: alert Motor Exam: strength 5/5 throughout MDM MDM MDM Narrative Medical decision making narrative: Differential diagnosis includes ureteral calculus, pyelonephritis, bowel obstruction, perforation, appendicitis, mesenteric adenitis, and urinary tract infection. CBC will be obtained to assess for leukocytosis and anemia. Basic metabolic profile will be obtained to assess for electrolyte abnormality and renal function. Serum hCG will be obtained to assess for . CT scan of the abdomen pelvis will be obtained to assess for ureteral calculus, pyelonephritis, bowel obstruction, perforation, and appendicitis. Lab Data Attestation: I reviewed the patient's lab results. Lab results narrative: CBC was reviewed and was essentially within normal limits. Basic metabolic profile was reviewed and was within normal limits. Serum hCG was reviewed and was negative. Urinalysis was reviewed. There is no evidence of urinary tract infection or hematuria. Labs: Laboratory Results - last 24 hr 06/09/23 14:10 WBC 7.8 RBC 5.38 Hgb 16.0 H Hct 47.7 H MCV 88.7 MCH 29.7 MCHC 33.5 RDW Std Deviation 42.0 RDW Coeff of Shankar 12.9 Plt Count 349 MPV 10.4 Immature Gran % (Auto) 0.100 Neut % (Auto) 63.3 Lymph % (Auto) 26.2 [place] % (Auto) 7.7 Eos % (Auto) 2.4 Baso % (Auto) 0.3 Absolute Neuts (auto) 5.0 Absolute Lymphs (more content not included)... Normal [facility] Erythrocyte distribution wid th ratioOrdered By: Jimenez Payton on 06-09-2023 Erythrocyte distribution width (RBC) [Ratio] 12.9 % 11.6-14.6 [facility] Erythrocyte distribution wid th standard deviationOrdered By: Jimenez Payton on 06-09-2023 Erythrocyte distribution width (RBC) [Entitic vol] 42.0 fL 35.1-43.9 [facility] Hematocrit Auto (Bld) [Volum e fraction]Ordered By: Jimenez Payton on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 Comment on above: Performed By: #### U AMAC, HCGUR, UAMIC ####[facility] HospitalFkeqiq6958 [place] [address] Urine, color Dark Yellow Normal Lt. Yellow [facility] Comment on above: Performed By: #### U AMAC, HCGUR, UAMIC ####[facility] HospitalEfileb3800 [place] [address] Urine, glucose presence NEG (Normal) Normal Negative [facility] Comment on above: Performed By: #### U AMAC, HCGUR, UAMIC ####[facility] HospitalPfchex0628 [place] [address] Urine, nitrite presence Negative Normal Negative [facility] Comment on above: Performed By: #### U AMAC, HCGUR, UAMIC ####[facility] HospitalQxlwim1887 [place] [address] Urine, pH 6.0 [pH] Normal 5.0-8.0 [facility] Comment on above: Performed By: #### U AMAC, HCGUR, UAMIC ####[place] [address] [place] [address] Urine, urobilinogen Normal (0.2) Normal 0-1 [facility] Comment on above: Performed By: #### U AMAC, HCGUR, UAMIC ####[facility] HospitalRkeqft1934 [place] [address] WBC (Leukocytes) 1+ Normal Negative [facility] Comment on above: Performed By: #### U AMAC, HCGUR, UAMIC ####[facility] HospitalIhrief6297 [place] [address] C-Reactive Proteinon 12-25- 017 C reactive protein (CRP) 0.3 mg/dL Normal 0.0-1.0 [facility] Comment on above: Performed By: #### 1 [id number] ####[facility] Hpc[address] [place] [address] CBC With Differentialon 12-04 Basophils Auto #/vol (Bld) 0.02 10*3/uL Normal 0.01-0.07 [facility] Comment on above: Performed By: #### 2 [id number] ####[facility] [address] [place] [address] Basophils/100 WBC Auto (Bld) 0.2 % Normal 0.1-1.2 [facility] Comment on above: Performed By: #### 2 945843 ####[facility] Swk[address] [place] [address] Eosinophils 0.28 10*3/uL Normal 0.04-0.50 [facility] Comment on above: Performed By: #### 2 760254 ####[facility] Bbm[address] [place] [address] Eosinophils/100 leukocytes 3.1 % Normal 0.0-8.1 [facility] Comment on above: Performed By: #### 2 [id number] ####[facility] [address] [place] [address] Erythrocyte distribution width Auto Ratio (RBC) 12.5 % Normal 12.0-15.4 [facility] Comment on above: Performed By: #### 2 [id number] ####[facility] Gkq[address] [place] [address] Erythrocytes (RBC) 0.00 10*3/uL Normal [facility] Comment on above: Performed By: #### 2 [id number] ####[facility] Suz[address] [place] [address] Erythrocytes (RBC) 0.0 /100{WBCs} Normal [facility] Comment on above: Performed By: #### 2 [id number] ####[facility] Rya[address] [place] [address] Erythrocytes (RBC) 5.03 10*6/uL Normal 3.85-5.10 [facility] Comment on above: Performed By: #### 2 [id number] ####[facility] Cff[address] [place] [address] Hematocrit (HCT) 43.5 % Normal 36.5-46.6 [facility] Comment on above: Performed By: #### 2 [id number] ####[facility] Odg[address] [place] [address] Hemoglobin mass conc (Bld) 14.7 g/dL Normal 11.8-15.3 [facility] Comment on above: Performed By: #### 2 [id number] ####[place] [address] [place] [address] Imm Grans Absolute 0.01 10*3/uL Normal 0.00-0.21 [facility] Comment on above: Performed By: #### 2 [id number] ####[facility] Zqi[address] [place] [address] Immature granulocytes #/vol (Bld) 0.1 % Normal [facility] Comment on above: Performed By: #### 2 722131 ####[place] [address] [place] [address] Lymphocytes 1.92 10*3/uL Normal 0.40-2.84 [facility] Comment on above: Performed By: #### 2 [id number] ####[facility] Cyw[address] [place] [address] Lymphocytes/100 leukocytes 21.5 % Normal 15.7-50.5 [facility] Comment on above: Performed By: #### 2 [id number] ####[facility] Dqi[address] [place] [address] MCH 29.2 pg Normal 27.5-33.0 [facility] Comment on above: Performed By: #### 2 [id number] ####[facility] Moh[address] [place] [address] MCHC mass conc (RBC) 33.8 g/dL Normal 30.1-35.0 [facility] Comment on above: Performed By: #### 2 [id number] ####[facility] Ofh[address] [place] [address] MCV 86.5 fL Normal 85.4-100.0 [facility] Comment on above: Performed By: #### 2 119486 ####[facility] Gzf[address] [place] [address] Monocytes 0.66 10*3/uL Normal 0.25-0.83 [facility] Comment on above: Performed By: #### 2 215694 ####[address] [address] Monocytes/100 leukocytes 7.4 % Normal 4.8-12.7 [facility] Comment on above: Performed By: #### 2 183917 ####[address] [address] Neutrophils 6.04 10*3/uL Normal 1.95-6.85 [facility] Comment on above: Performed By: #### 2 006602 ####[address] [address] Neutrophils/100 leukocytes 67.7 % Normal 36.8-73.2 [facility] Comment on above: Performed By: #### 2 [id number] ####[facility] Xxs[address] [place] [address] Platelet mean volume (PMV) 10.4 fL Normal 9.9-12.1 [facility] Comment on above: Performed By: #### 2 161410 ####[facility] Ejv[address] [place] [address] Platelets 340 10*3/uL Normal 155-404 [facility] Comment on above: Performed By: #### 2 [id number] ####[facility] Xfs[address] [place] [address] RDW SD 39.5 fL Normal 39.3-48.6 [facility] Comment on above: Performed By: #### 2 665893 ####[facility] Qtt[address] [place] [address] WBC (Leukocytes) 8.9 10*3/uL Normal 4.4-9.9 [facility] Comment on above: Performed By: #### 2 [id number] ####[facility] Nat[address] [place] [address] Culture Woundon 12-25-2016 WBC (Leukocytes) STATUS:FINAL REPORT SITE:SAME SOURCESOURCE:AbscessG adry stain, direct specimen:3+ WBC'sNo Epithelial cells seenNo Organisms seenCulture Wound:Methicillin Resistant Staph. aureus (MRSA)Rare growth ofCorynebacterium species4+ growth ofANTIBIOTIC INTERPRETATION JENNA STATUS Methicillin Resistant Staph. aureus (MRSA) Organism ID: 1Ciprofloxacin S <=1 FErythromycin R >4 FGentamicin S <=1 FLevofloxacin S <=0.5 FLinezolid S 2 FOxacillin R >2 FRifampin S <=1 FTetracycline S <=1 FTrimeth/Sulfa S <=0.5/9.5 FVancomycin S 2 F Normal [facility] Comment on above: Performed By: #### U ARFX ####[facility] [address] [place] [address] ESR, Westergrenon 12-25-2016 ESR, Westergren 1 mm/h Normal 0-20 [facility] Comment on above: Performed By: #### 2 [id number] ####[facility] Ehe[address] [place] [address] Lactic Acidon 12-25-2016 Lactate 0.80 mmol/L Normal 0.40-2.00 [facility] Comment on above: Performed By: #### 1 [id number] ####[facility] Xhw[address] [place] [address] Culture Anaerobicon 12-02-19 17 Culture Anaerobic STATUS: FINAL REPORT SITE: FLUID, LEFT BREAST SOURCE: Swab for anaerobic culture Culture Anaerobic: Mixed anaerobes isolated, Beta lactamase Negative, no further work up. Normal [facility] Comment on above: Performed By: #### 6 [id number] ####[facility] Xyc[address] [place] [address] Culture Woundon 12-01-2016 Culture Wound STATUS: FINAL REPORT SITE: FLUID, LEFT BREAST SOURCE: Wound Gram stain, direct specimen: 4+ WBC's 1+ Gram positive cocci Culture Wound: No Growth Normal [facility] Comment on above: Performed By: #### 6 [id number] ####[facility] Wwt[address] [place] [address] Pathology (EM)on 12-01-2016 Pathology ([facility]) FINAL SURGICAL PATHOLOGY [id number] FINAL DIAGNOSISLEFT BREAST TISSUE: BENIGN BREAST TISSUE WITH FOCAL CHRONIC INFLAMMATION AND FIBROSIS.CLINICAL HISTORY:LEFT BREAST ABSCESSSPECIMEN A REMOVED: 19:30, 12/01/2016SPECIMEN A IN FORMALIN: 20:16, 12/01/2016SPECIMEN A TOTAL TIME IN FORMALIN: 70.75 HOURSOPERATION:DRAINA GE LEFT BREAST ABSCESSSPECIMEN(S):(A ) BREAST MASS, LEFT, LEFT BREAST TISSUEPerformed at [facility], [address] [place], [place] [address]GROSS DESCRIPTION:Received fresh, and post-fixed in formalin, labeled with the patient's nameand Left breast tissue, are two irregular white to pale yellow to brown softtissue fragments. The fragments measure 0.5 x 0.4 x 0.4 cm, and 2.2 x 1.8 x1.1 cm. The large fragment is inked in black and serially sectioned. The cutsurface is white-pale yellow. Submitted completely in three cassettes.Note: The tissue was post-fixed in 10% formalin at 20:16 on 12/01/16 by [facility].The specimen was previously submitted for microbiology cultures.TASSigned Out by:JOSE YOUNG M.D.Reported: 12/05/2016 Normal [facility] Comment on above: Performed By: #### S UR ####[facility] [address] [place] [address] US BREAST UNI LIMITED LTon 0 12-01-2016 US BREAST UNI LIMITED LT DATE OF EXAM: S 2016 1:55PMCLINICAL HISTORY/ Name: CATRINA SOSASTUDY:US BREAST UNI LIMITED LT; 12/01/2016 1:55 pmINDICATION:cellulit is and lump.COMPARISON:None. [facility] CL[facility]ICIAN:ARACELIS BURNS:Sonogr aphic evaluation of the inferior left breast.FINDINGS:At the site of clinical abnormality there is regionally abnormal hypervascular hypoechogenicity. This is a relatively large area measuring 4 cm in transverse dimension by 2.9 cm in cephalocaudal dimension by 1.5 cm in AP dimension. A portion of this appears to contain multiple tiny locule is interspersed between more colic tissue. A portion more inferiorly contains less intervening tissue and may be a more uniformly hypoechoic forming abscess. The abnormality extends inferiorly from the nipple in the 6 o'clock position. A developing breast abscess is the most likely explanation based on the combination of clinical and sonographic findings.CONCLUSION: IMPRESSION:Probable developing breast abscess as detailed above Normal [facility] CBC With Differentialon 11-04 Basophils Auto #/vol (Bld) 0.03 10*3/uL Normal 0.01-0.07 [facility] Comment on above: Performed By: #### 2 [id number] ####[facility] Z[address] [place] [address] Basophils/100 WBC Auto (Bld) 0.2 % Normal 0.1-1.2 [facility] Comment on above: Performed By: #### 2 [id number] ####[facility] Tbe[address] [place] [address] Eosinophils 0.11 10*3/uL Normal 0.04-0.50 [facility] Comment on above: Performed By: #### 2 [id number] ####[facility] Srp[address] [place] [address] Eosinophils/100 leukocytes 0.8 % Normal 0.0-8.1 [facility] Comment on above: Performed By: #### 2 [id number] ####[facility] Xym[address] [place] [address] Erythrocyte distribution width Auto Ratio (RBC) 12.1 % Normal 12.0-15.4 [facility] Comment on above: Performed By: #### 2 [id number] ####[facility] X[address] [place] [address] Erythrocytes (RBC) 5.17 10*6/uL High 3.85-5.10 [facility] Comment on above: Performed By: #### 2 [id number] ####38 [address] [address] Erythrocytes (RBC) 0.00 10*3/uL Normal [facility] Comment on above: Performed By: #### 2 [id number] ####[address] [address] Erythrocytes (RBC) 0.0 /100{WBCs} Normal [facility] Comment on above: Performed By: #### 2 [id number] ####[address] [address] Hematocrit (HCT) 44.2 % Normal 36.5-46.6 [facility] Comment on above: Performed By: #### 2 [id number] ####[address] [address] Hemoglobin mass conc (Bld) 15.4 g/dL High 11.8-15.3 [facility] Comment on above: Performed By: #### 2 [id number] ####[address] [address] Imm Grans Absolute 0.05 10*3/uL Normal 0.00-0.21 [facility] Comment on above: Performed By: #### 2 [id number] ####[address] [address] Immature granulocytes #/vol (Bld) 0.3 % Normal [facility] Comment on above: Performed By: #### 2 195100 ####[address] [address] Lymphocytes 2.21 10*3/uL Normal 0.40-2.84 [facility] Comment on above: Performed By: #### 2 424004 ####[address] [address] Lymphocytes/100 leukocytes 15.2 % Low 15.7-50.5 [facility] Comment on above: Performed By: #### 2 [id number] ####[facility] [address] [place] [address] MCH 29.8 pg Normal 27.5-33.0 [facility] Comment on above: Performed By: #### 2 455228 ####[facility] Lcj[address] [place] [address] MCHC mass conc (RBC) 34.8 g/dL Normal 30.1-35.0 [facility] Comment on above: Performed By: #### 2 912004 ####[facility] Pgl[address] [place] [address] MCV 85.5 fL Normal 85.4-100.0 [facility] Comment on above: Performed By: #### 2 062574 ####[facility] Tzf[address] [place] [address] Monocytes 0.97 10*3/uL High 0.25-0.83 [facility] Comment on above: Performed By: #### 2 424910 ####[facility] Vrj[address] [place] [address] Monocytes/100 leukocytes 6.7 % Normal 4.8-12.7 [facility] Comment on above: Performed By: #### 2 850907 ####[facility] Vmc[address] [place] [address] Neutrophils 11.19 10*3/uL High 1.95-6.85 [facility] Comment on above: Performed By: #### 2 413554 ####[facility] Uut[address] [place] [address] Neutrophils/100 leukocytes 76.8 % High 36.8-73.2 [facility] Comment on above: Performed By: #### 2 [id number] ####[facility] Gft[address] [place] [address] Platelet mean volume (PMV) 10.6 fL Normal 9.9-12.1 [facility] Comment on above: Performed By: #### 2 [id number] ####[facility] Rpk[address] [place] [address] Platelets 308 10*3/uL Normal 155-404 [facility] Comment on above: Performed By: #### 2 [id number] ####[facility] [address] [place] [address] RDW SD 38.0 fL Low 39.3-48.6 [facility] Comment on above: Performed By: #### 2 [id number] ####[facility] [address] [facility] [place] [address] WBC (Leukocytes) 14.6 10*3/uL High 4.4-9.9 [facility] Comment on above: Performed By: #### 2 174013 ####[facility] [address] [place] [address] Comprehensive Metabolic Pane [facility] 11-30-2016 Alanine aminotransferase (ALT) 10 U/L Normal 7-45 [facility] Comment on above: Performed By: #### 1 [id number] ####[facility] [address] [facility] [place] [address] Albumin 4.3 g/dL Normal 3.4-5.0 [facility] Comment on above: Performed By: #### 1 [id number] ####[facility] [address] [facility] [place] [address] Albumin/Globulin Ratio 1.4 {ratio} Normal 0.9-2.4 [facility] Comment on above: Performed By: #### 1 140662 ####[facility] [address] [facility] [place] [address] Alkaline phosphatase (ALP) 140 U/L High 45-117 [facility] Comment on above: Performed By: #### 1 [id number] ####[facility] [address] [place] [address] Anion gap 13 mmol/L Normal 10-20 [facility] Comment on above: Performed By: #### 1 [id number] ####[facility] [address] [place] [address] Aspartate aminotransferase (AST) 11 U/L Low 13-39 [facility] Comment on above: Performed By: #### 1 [id number] ####[facility] [address] [place] [address] Bicarbonate (HCO3) 25 mmol/L Normal 21-32 [facility] Comment on above: Performed By: #### 1 358310 ####[facility] Ybz[address] [place] [address] Bilirubin (total) 0.3 mg/dL Normal 0.0-1.2 [facility] Comment on above: Performed By: #### 1 459546 ####[facility] [address]up[address] [place] [address] BUN/Creatinine Ratio 10 mg/mg Normal 5-25 [facility] Comment on above: Performed By: #### 1 333690 ####[facility] [address] [place] [address] Calcium 9.5 mg/dL Normal 8.6-10.3 [facility] Comment on above: Performed By: #### 1 869061 ####[facility] Xjr[address] [place] [address] Chloride 104 mmol/L Normal 98-107 [facility] Comment on above: Performed By: #### 1 158539 ####[facility] [address] [place] [address] Creatinine 0.71 mg/dL Normal 0.50-1.05 [facility] Comment on above: Performed By: #### 1 [id number] ####[facility] Aht[address] [place] [address] eGFR (MDRD) mL/min/{1.73_m2} Normal [facility] Comment on above: Result Comment: Inte rpretation for Chronic Kidney Disease:Stages 1&2 >60 Healthy or potential kidney damage.Mild decrease of GFR.Stage 3 30-59 Moderate decrease of GFR.Stage 4 15-29 Severe decrease of GFR.Stage 5 <15 Kidney failure or on dialysis. Performed By: #### 1 [id number] ####[facility] Rww[address] [place] [address] Glucose mass conc 91 mg/dL Normal 70-100 [facility] Comment on above: Performed By: #### 1 [id number] ####[facility] Dnp[address] [place] [address] Potassium molar conc 3.8 mmol/L Normal 3.5-5.1 [facility] Comment on above: Performed By: #### 1 [id number] ####[facility] [address]nu[address] [place] [address] Protein 7.3 g/dL Normal 6.4-8.2 [facility] Comment on above: Performed By: #### 1 [id number] ####[facility] Umw[address] [place] [address] Sodium 138 mmol/L Normal 136-145 [facility] Comment on above: Performed By: #### 1 853736 ####[facility] Lab[address] [place] [address] Urea nitrogen 7 mg/dL Normal 6-23 [facility] Comment on above: Performed By: #### 1 139507 ####[address] [address] Culture Bloodon 11-30-2016 Culture Blood STATUS: FINAL REPORT SITE: SAME SOURCE SOURCE: Blood-line draw Culture Blood: No growth after 5 days of incubation. Normal [facility] Comment on above: Performed By: #### 6 [id number] ####[facility] [address] [place] [address] Culture Blood STATUS: FINAL REPORT SITE: SAME SOURCE SOURCE: Blood Specimen Culture Blood: No growth after 5 days of incubation. [facility] Comment on above: Performed By: #### 6 [id number] ####[facility] [address] [place] [address] Lactic Acidon 11-30-2016 Lactate 2.00 mmol/L Normal 0.40-2.00 [facility] Comment on above: Result Comment: Plas ma lactate is elevated. In the setting of severesepsis or septic shock, a repeat lactate measurementshould be obtained within five (5) hours of the initialresult to assess response to intervention. Performed By: #### 1 [id number] ####[facility] [address] [place] [address] Test (Serum)on Test, Serum Negative Normal [facility] Comment on above: Performed By: #### 3 [id number] ####[facility] [address] [facility] [place] [address] Urinalysis with Reflex Cultu reon 11-30-2016 Amorphous Crystal Many Normal None [facility] Comment on above: Performed By: #### U ARFX ####[facility] [address] [place] [address] Ascorbic Acid Negative Normal Negative [facility] Comment on above: Performed By: #### U ARFX ####[facility] [address] [place] [address] Automated Urine Microscopy Performed Normal [facility] Comment on above: Performed By: #### U ARFX ####[facility] [address] [place] [address] Bilirubin Ql (U) Negative Normal Negative [facility] Comment on above: Performed By: #### U ARFX ####[facility] [address] [place] [address] Blood Negative Normal Negative [facility] Comment on above: Performed By: #### U ARFX ####[facility] [address] [place] [address] Erythrocytes (RBC) 3 /[HPF] Normal 0-3 [facility] Comment on above: Performed By: #### U ARFX ####[facility] [address] [place] [address] Glucose mass conc Negative Normal Negative [facility] Comment on above: Performed By: #### U ARFX ####[facility] [address] [place] [address] Mucous Rare Normal None [facility] Comment on above: Performed By: #### U ARFX ####[facility] [address] [place] [address] Protein Negative Normal Negative [facility] Comment on above: Performed By: #### U ARFX ####[facility] [address] [place] [address] Urine, appearance Cloudy Normal Clear [facility] Comment on above: Performed By: #### U ARFX ####[facility] [address] [place] [address] Urine, bacteria in sediment Occasional Normal None [facility] Comment on above: Performed By: #### U ARFX ####[facility] [address] [place] [address] Urine, color Yellow Normal [facility] Comment on above: Performed By: #### U ARFX ####[facility] [address] [place] [address] Urine, ketones presence Negative Normal Negative [facility] Comment on above: Performed By: #### U ARFX ####[facility] [address] [place] [address] Urine, nitrite presence Negative Normal Negative [facility] Comment on above: Performed By: #### U ARFX ####[facility] [address]xn[address] [place] [address] Urine, pH 6.0 [pH] Normal 5.0-9.0 [facility] Comment on above: Performed By: #### U ARFX ####[facility] [address] [place] [address] Urine, specific gravity 1.010 Normal 1.003-1.035 [facility] Comment on above: Performed By: #### U ARFX ####[facility] [address] [place] [address] Urine, squamous cells in sediment 26 /[HPF] Normal 0-5 [facility] Comment on above: Performed By: #### U ARFX ####[facility] [address] [place] [address] Urine, urobilinogen <2.0 Normal Negative [facility] Comment on above: Performed By: #### U ARFX ####[facility] [address] [place] [address] WBC (Leukocytes) Moderate Abnormal Negative [facility] Comment on above: Performed By: #### U ARFX ####[facility] [address] [place] [address] WBC (Leukocytes) 51 /[HPF] Normal 0-5 [facility] Comment on above: Performed By: #### U ARFX ####[facility] [address] [place] [address] Culture Urineon 11-29-2016 Culture Urine FINAL REPORT Urine 10,000-100,000 CFU/ml of Mixed Gram positives, No further work-up. Normal [facility] Comment on above: Performed By: #### 6 [id number] ####[facility] Pgo[address] [facility] [place] [address] Culture Urineon 10-02-2016 Culture Urine FINAL REPORT Urine 1,000-10,000 CFU/ml of Mixed Gram positives, No further work-up. Normal [facility] Comment on above: Performed By: #### 6 [id number] ####[facility] [address]qz[address] [place] [address] SPINE L MIN 4 VIEWSon 2016 SPINE L MIN 4 VIEWS DATE OF EXAM: Oct 02 2016 4:43PMCLINICAL HISTORY/ Name: SHAHLA SOSAY:SPINE T 3 VIEWS; SPINE L MIN 4 VIEWS; 10/02/2016 4:43 pmINDICATION:Non Trauma.COMPARISON:Non e. [id number] CLINICIAN:PAULINO VOGELS:Thoraci c spine: Vertebral body heights are maintained and are anatomically aligned. No facet subluxation or dislocation. Bones well mineralized. Discs spaces are well maintained. No significant scoliosis. Visualized lungs are clear. The heart is not enlarged.Lumbar spine: Vertebral body heights are maintained and anatomically aligned. No facet subluxation dislocation. Vertebral body heights are maintained without compression fracture. The SI joints are intact.CONCLUSION: IMPRESSION:1. No acute thoracic spine abnormality.2. No acute lumbar spine abnormality.3. No radiographically significant degenerative osseous changes in the thoracic lumbar spine. Normal [facility] SPINE T 3 VIEWSon 10-02-2016 SPINE T 3 VIEWS DATE OF EXAM: Oct 02 2016 4:43PMCLINICAL HISTORY/ Name: SHEILAMERCEDEZ:SPINE T 3 VIEWS; SPINE L MIN 4 VIEWS; 10/02/2016 4:43 pmINDICATION:Non Trauma.COMPARISON:Non e. [id number] CLINICIAN:PAULINO VOGELS:Thoraci c spine: Vertebral body heights are maintained and are anatomically aligned. No facet subluxation or dislocation. Bones well mineralized. Discs spaces are well maintained. No significant scoliosis. Visualized lungs are clear. The heart is not enlarged.Lumbar spine: Vertebral body heights are maintained and anatomically aligned. No facet subluxation dislocation. Vertebral body heights are maintained without compression fracture. The SI joints are intact.CONCLUSION: IMPRESSION:1. No acute thoracic spine abnormality.2. No acute lumbar spine abnormality.3. No radiographically significant degenerative osseous changes in the thoracic lumbar spine. Normal [facility] Urinalysis with Reflex Cultu reon 10-02-2016 Ascorbic Acid Negative Normal Negative [facility] Comment on above: Performed By: #### U ARFX ####[facility] [address] [place] [address] Automated Urine Microscopy Performed Normal [facility] Comment on above: Performed By: #### U ARFX ####[facility] Qry[address] [place] [address] Bilirubin Ql (U) Negative Normal Negative [facility] Comment on above: Performed By: #### U ARFX ####[facility] Btz[address] [place] [address] Blood Negative Normal Negative [facility] Comment on above: Performed By: #### U ARFX ####[facility] Ehr[address] [place] [address] Erythrocytes (RBC) 4 /[HPF] Normal 0-3 [facility] Comment on above: Performed By: #### U ARFX ####[facility] [address] [place] [address] Glucose mass conc Negative Normal Negative [facility] Comment on above: Performed By: #### U ARFX ####[facility] Mgz[address] [place] [address] Mucous Rare Normal None [facility] Comment on above: Performed By: #### U ARFX ####[facility] Ajy[address] [place] [address] Protein Negative Normal Negative [facility] Comment on above: Performed By: #### U ARFX ####[facility] [address] [place] [address] Urine, appearance Cloudy Normal Clear [facility] Comment on above: Performed By: #### U ARFX ####[facility] [address] [place] [address] Urine, bacteria in sediment Rare Normal None [facility] Comment on above: Performed By: #### U ARFX ####[facility] [address] [place] [address] Urine, color Yellow Normal [facility] Comment on above: Performed By: #### U ARFX ####[facility] [address] [place] [address] Urine, ketones presence Negative Normal Negative [facility] Comment on above: Performed By: #### U ARFX ####[facility] [address] [place] [address] Urine, nitrite presence Negative Normal Negative [facility] Comment on above: Performed By: #### U ARFX ####[facility] [address] [place] [address] Urine, pH 5.0 [pH] Normal 5.0-9.0 [facility] Comment on above: Performed By: #### U ARFX ####[facility] [address] [place] [address] Urine, specific gravity 1.012 Normal 1.003-1.035 [facility] Comment on above: Performed By: #### U ARFX ####[facility] [address] [place] [address] Urine, squamous cells in sediment 33 /[HPF] Normal 0-5 [facility] Comment on above: Performed By: #### U ARFX ####[facility] [address] [place] [address] Urine, urobilinogen <2.0 Normal Negative [facility] Comment on above: Performed By: #### U ARFX ####[facility] [address] [place] [address] WBC (Leukocytes) 22 /[HPF] Normal 0-5 [facility] Comment on above: Performed By: #### U ARFX ####[facility] [address] [place] [address] WBC (Leukocytes) Large Abnormal Negative [facility] Comment on above: Performed By: #### U ARFX ####[facility] Ucw[address] [place] [address] Vital Signs Date Time Vital Sign Value Performing Clinician Facility 09-22-2024 16:41-0400 Body mass index (BMI) [Ratio] 28.28 kg/m2 Denisse Alba TIRE MOLD TESTER.TELEVISION SPECIALIST Work Phone: [facility] 09-22-2024 16:41-0400 Body temperature 99 [degF] Denisse Alba TIRE MOLD TESTER.TELEVISION SPECIALIST Work Phone: [facility] 09-22-2024 16:41-0400 Body weight 69 kg Denisse Alba TIRE MOLD TESTER.TELEVISION SPECIALIST Work Phone: [facility] 09-22-2024 16:41-0400 Diastolic blood pressure 90 mm[Hg] Denisse Alba TIRE MOLD TESTER.TELEVISION SPECIALIST Work Phone: [facility] 09-22-2024 16:41-0400 Heart rate 105 /min Denisse Alba TIRE MOLD TESTER.TELEVISION SPECIALIST Work Phone: [facility] 09-22-2024 16:41-0400 Respiratory rate 17 /min Denisse Alba TIRE MOLD TESTER.TELEVISION SPECIALIST Work Phone: [facility] 09-22-2024 16:41-0400 SaO2% (BldA) [Mass fraction] 97 % Denisse Alba TIRE MOLD TESTER.TELEVISION SPECIALIST Work Phone: [facility] 09-22-2024 16:41-0400 Systolic blood pressure 130 mm[Hg] Denisse Alba TIRE MOLD TESTER.TELEVISION SPECIALIST Work Phone: [facility] 05-12-2024 18:22-0400 Body temperature 97.8 [degF] No Primary Care Physician [facility] 05-12-2024 18:22-0400 Diastolic blood pressure 77 mm[Hg] No Primary Care Physician [facility] 05-12-2024 18:22-0400 Heart rate 66 /min No Primary Care Physician [facility] 05-12-2024 18:22-0400 Respiratory rate 17 /min No Primary Care Physician [facility] 05-12-2024 18:22-0400 SaO2% (BldA) [Mass fraction] 97 % No Primary Care Physician [facility] 05-12-2024 18:22-0400 Systolic blood pressure 130 mm[Hg] No Primary Care Physician [facility] 05-12-2024 15:05-0400 Body height 154.94 cm No Primary Care Physician [facility] 05-12-2024 15:05-0400 Body mass index (BMI) [Ratio] 29.3 kg/m2 No Primary Care Physician [facility] 05-12-2024 15:05-0400 Body weight 70.48 kg No Primary Care Physician [facility] 06-09-2023 15:53-0400 Body temperature 97.2 [degF] [facility] 06-09-2023 15:53-0400 Diastolic blood pressure 97 mm[Hg] [facility] 06-09-2023 15:53-0400 Heart rate 90 /min [facility] 06-09-2023 15:53-0400 Respiratory rate 20 /min [facility] 06-09-2023 15:53-0400 SaO2% (BldA) [Mass fraction] 98 % [facility] 06-09-2023 15:53-0400 Systolic blood pressure 129 mm[Hg] [facility] 06-09-2023 13:46-0400 Body height 154.94 cm [facility] 06-09-2023 13:46-0400 Body mass index (BMI) [Ratio] 31.6 kg/m2 [facility] 06-09-2023 13:46-0400 Body weight 75.8 kg [facility] 01-16-2023 07:44-0500 Body height 156.2 cm Dasia Marniemy HAYNES Work Phone: [facility] 01-16-2023 07:44-0500 Body weight 73.66 kg Dasia [place] TI[employer] MOLD TESTER.TELEVISION SPECIALIST Work Phone: [facility] 01-16-2023 07:44-0500 Diastolic blood pressure 60 mm[Hg] Dasia Marni TIRE MOLD TESTER.TELEVISION SPECIALIST Work Phone: [facility] 01-16-2023 07:44-0500 Systolic blood pressure 120 mm[Hg] Dasia Marni TIRE MOLD TESTER.TELEVISION SPECIALIST Work Phone: [facility] 04-29-2021 01:33-0500 Diastolic blood pressure 65 mm[Hg] No Pcp Required [facility] 04-29-2021 01:33-0500 Heart rate 81 /min No Pcp Required [facility] 04-29-2021 01:33-0500 Respiratory rate 16 /min No Pcp Required [facility] 04-29-2021 01:33-0500 SaO2% (BldA) [Mass fraction] 97 % No Pcp Required [facility] 04-29-2021 01:33-0500 Systolic blood pressure 106 mm[Hg] No Pcp Required [facility] 04-28-2021 23:21-0500 Body temperature 98.06 [degF] No Pcp Required [facility] 04-28-2021 22:18-0500 Body height 154.9 cm No Pcp Required [facility] 04-28-2021 22:18-0500 Body weight 68 kg No Pcp Required [facility] 11-04-2020 22:38-0400 Body height 154.9 cm Josephine Carroll MD Work Phone: [facility] Work Phone: 11-04-2020 22:38-0400 Body mass index (BMI) [Ratio] 30.23 kg/m2 Josephine Carroll MD Work Phone: [employer] Work Phone: 11-04-2020 22:38-0400 Body temperature 98.01 [degF] Josephine Carroll MD Work Phone: [employer] Work Phone: 11-04-2020 22:38-0400 Body weight 72.58 kg Josephine Carroll MD Work Phone: [employer] Work Phone: 11-04-2020 22:38-0400 Diastolic blood pressure 73 mm[Hg] Josephine Carroll MD Work Phone: [employer] Work Phone: 11-04-2020 22:38-0400 Heart rate 83 /min Josephine Carroll MD Work Phone: [employer] Work Phone: 11-04-2020 22:38-0400 Respiratory rate 18 /min Josephine Carroll MD Work Phone: [employer] Work Phone: 11-04-2020 22:38-0400 SaO2% (BldA) [Mass fraction] 98 % Josephine Carroll MD Work Phone: [employer] Work Phone: 11-04-2020 22:38-0400 Systolic blood pressure 123 mm[Hg] Josephine Carroll MD Work Phone: [employer] Work Phone: 08-15-2020 20:52-0400 Respiratory rate 18 /min Chris Cazares MD Work Phone: [employer] Work Phone: 08-15-2020 20:52-0400 SaO2% (BldA) [Mass fraction] 99 % Chris Cazares MD Work Phone: [employer] Work Phone: 08-15-2020 20:21-0400 Body height 154.9 cm Chris Cazares MD Work Phone: [employer] Work Phone: 08-15-2020 20:21-0400 Body mass index (BMI) [Ratio] 29.29 kg/m2 Chris Cazares MD Work Phone: [employer] Work Phone: 08-15-2020 20:21-0400 Body temperature 98.29 [degF] Chris Cazares MD Work Phone: [employer] Work Phone: 08-15-2020 20:21-0400 Body weight 70.31 kg Chris Cazares MD Work Phone: [employer] Work Phone: 08-15-2020 20:21-0400 Diastolic blood pressure 89 mm[Hg] Chris Cazares MD Work Phone: [employer] Work Phone: 08-15-2020 20:21-0400 Heart rate 99 /min Chris Caazres MD Work Phone: [employer] Work Phone: 08-15-2020 20:21-0400 Systolic blood pressure 137 mm[Hg] Chris Cazares MD Work Phone: [employer] Work Phone: Encounters Encounter Date Encounter Type Care Provider Facility Start: 09-22-2024 End: 09-22-2024 Patient encounter procedure Denisse Alba TIRE MOLD TESTER.TELEVISION SPECIALIST Work Phone: [facility] [place] [facility] Comment on above: Allergic dermatitis (Primary Dx); Rash Start: 09-22-2024 End: 09-22-2024 ambulatory DENISSE ALBA Facility:[facility] Start: 06-12-2024 End: 07-03-2024 Telephone encounter Self [facility] [place] Comment on above: Orders Start: 06-03-2024 End: 06-03-2024 Emergency department patient visit NONE PHYSICIAN Facility:[facility] Start: 05-12-2024 End: 05-12-2024 Emergency department patient visit No Primary Care Physician Facility:[facility] Start: 01-06-2024 End: 01-06-2024 Emergency department patient visit No Primary Care Physician Facility:[facility] Start: 06-09-2023 End: 06-09-2023 Emergency department patient visit [facility] Work Phone: Start: 03-19-2023 End: 04-04-2023 ambulatory No Primary Care Physician [facility] Work Phone: Start: 03-19-2023 End: 04-04-2023 Discharged Recurring No Primary Care Physician [facility] Start: 03-02-2023 End: 03-04-2023 ambulatory No Primary Care Physician [facility] Work Phone: Start: 03-02-2023 End: 03-04-2023 Discharged Recurring No Primary Care Physician [facility] Start: 01-29-2023 End: 02-01-2023 ambulatory No Primary Care Physician [facility] Work Phone: Start: 01-29-2023 End: 02-01-2023 Discharged Recurring No Primary Care Physician [facility] Start: 01-16-2023 End: 01-16-2023 Patient encounter procedure No Primary Care Physician [facility] Work Phone: Start: 01-16-2023 End: 01-16-2023 Patient encounter procedure Dasia Grider APRN.TELEVISION SPECIALIST Work Phone: OB/Gynecology Comment on above: Encounter for gyneco logical examination (general) (routine) without abnormal findings (Primary Dx); Screening for cervical cancer; Encounter for screening for human papillomavirus (HPV); Nexplanon removal Start: 01-16-2023 End: 01-16-2023 Patient encounter status Dasia Marni PEACETELEVISION SPECIALIST Work Phone: [facility] Work Phone: Start: 01-10-2023 Registered Referred No Primary Care Physician [facility] Start: 01-10-2023 Registered Recurring No [facility] Start: 04-28-2021 End: 04-29-2021 Emergency department patient visit Nga L. Zenczak [facility] Start: 11-05-2020 End: 11-05-2020 [facility] Start: 11-04-2020 End: 11-05-2020 Emergency department patient visit No Pcp Required [facility] Comment on above: Lymphadenitis (Prima ry Dx); Smoking Start: 08-15-2020 End: 08-15-2020 Emergency department patient visit VARGAS CATALAN [facility] Start: 08-15-2020 End: 08-15-2020 Emergency department patient visit Chris Cazares MD Work Phone: [facility] Comment on above: Impetigo (Primary Dx ); Bronchitis Start: 06-12-2017 End: 06-12-2017 Emergency department patient visit CHRIS JAMES Facility:[facility] Start: 04-20-2017 Ambulatory ARACELIS STANTON Facility: [facility] Start: 03-21-2017 Emergency department patient visit UNKNOWN PROVIDER [facility] Start: 12-25-2016 End: 12-25-2016 Emergency department patient visit JANETBLANCA KOHLIPeggy CHAPPELL Facility:[facility] [employer] [facility] Start: 12-01-2016 Ambulatory Facility:[id number] Start: 11-30-2016 End: 12-02-2016 Evaluation and management of inpatient ARACELIS STANTON Facility:[facility] [employer] [facility] Start: 11-30-2016 Ambulatory Facility:[id number] Start: 11-29-2016 End: 11-30-2016 Emergency department patient visit NO FAMILY DOCTOR NO FAMILY DOCTOR Facility:[facility] [employer] [facility] Start: 10-02-2016 End: 10-02-2016 Emergency department patient visit NO FAMILY DOCTOR NO FAMILY DOCTOR Facility:[facility] Start: 10-02-2016 Ambulatory Facility:[id number] Procedures Date Procedure Procedure Detail Performing Clinician Start: 05-12-2024 Plain chest X-ray No Pr imary Care Physician Start: 06-09-2023 CT of abdomen and pe lvis without contrast Start: 03-19-2023 Viral antigen assay No Primary Care Physician Start: 03-02-2023 Viral antigen assay No Primary Care Physician Start: 01-29-2023 Viral antigen assay No Primary Care Physician Start: 08-15-2020 Urnls dip stick/tabl et rgnt auto w/o microscopy Chris Cazares MD Work Phone: Plan of Treatment Date Care Activity Detail Author Start: 01-16-2026 Screening for malign ant neoplasm of cervix Cervical Cancer Screening [facility] Start: 11-03-2024 Influenza vaccination C [facility] Start: 05-12-[address] [facility] Start: 05-12-2024 End: 05-12-2024 [facility] Start: 11-04-2023 Covid-19 Vaccine () Covid-19 Vaccine () [facility] Start: 06-09-[address] [facility] Start: 04-05-2023 DTaP/Tdap/Td vaccine (2 - Td or Tdap) DTaP/Tdap/Td vaccine (2 - Td or Tdap) [email or web address] Phone: Start: 04-05-2023 Urine microalbumin profile [facility] Start: 11-03-2022 Covid-19 Vaccine () Covid-19 Vaccine () [facility] Start: 03-05-2022 Depression Assessment Depression Ass essment [facility] Start: 11-03-2020 Influenza vaccination M [employer] Phone: Start: 2014 Pap Testing Pap Testing [facility] Start: 2014 Screening for malign ant neoplasm of cervix Cervical cancer screen [email or web address] Phone: Start: 2012 Pneumococcal vaccination Pneumococcal Vaccine (1 of 2 - PCV) [facility] Start: 05-19-2011 Annual PCP Team 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 Engine 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 kelly Disease Visit Annual PCP Team Chronic Disease Visit [facility] Start: 05-19-2011 Depression Screening Depression Scre ening [facility] Start: 05-19-2011 HIV Screening HIV Screening [facility] Start: 05-19-2011 HIV screening HIV Screening [facility] Start: 05-19-2011 Spirometry Spirometry [facility] Start: 2008 HIV screening HIV screen Shahrzad edin [facility] Work Phone: Start: 2005 COVID-19 Vaccine (1) COVID-19 Vaccin e (1) [email or web address] Phone: Start: 05-19-1999 Pneumococcal 0-64 ye ars Vaccine (1 of 2 - PPSV23) Pneumococcal 0-64 years Vaccine (1 of 2 - PPSV23) [email or web address] Phone: Start: 05-19-1999 Pneumococcal vaccination Pneumococcal Vaccine (1 - PCV) [facility] Start: 1994 Varicella vaccine (1 of 2 - 2-dose childhood series) Varicella vaccine (1 of 2 - 2-dose childhood series) [email or web address] Phone: Start: 1993 Hepatitis C screening Hepatitis C sc reen [email or web address] Phone: End: 08-15-2020 Microscopic urinalysis Microscopic Urinalysis Lab STAT Once for 1 Occurrences starting 08/15/2020 until 08/15/2020 [email or web address] Phone: Comment on above: Once for 1 Occurrenc es starting 08/15/2020 until 08/15/2020 Microscopic urinalysis Microscop ic Urinalysis Lab STAT 08/15/2020 8:45 PM EDT [email or web address] Phone: NEXPLANON INSERTION NEXPLANON IN SERTION Procedures Routine Nexplanon insertion Ordered: 06/12/2024 [facility] Comment on above: Ordered: 06/12/2024 NEXPLANON REMOVAL NEXPLANON MICHAEL CHARLEY Procedures Routine Nexplanon removal Ordered: 01/16/2023 [facility] Work Phone: Comment on above: Ordered: 01/16/2023 NEXPLANON REMOVAL NEXPLANON MICHAEL CHARLEY Procedures Routine Nexplanon removal Ordered: 06/12/2024 [facility] Work Phone: Comment on above: Ordered: 06/12/2024 PAP TEST PAP TEST Lab [facility] Encounter for gynecological examination (general) (routine) without abnormal findings Screening for cervical cancer Encounter for screening for human papillomavirus (HPV) Ordered: 01/16/2023 [facility] Work Phone: Comment on above: Ordered: 01/16/2023 Patient Education [facility] Work Phone: Patient referral [facility] Work Phone: Urine Reflex to Culture Urine Re flex to Culture Lab STAT 08/15/2020 8:45 PM EDT [employer] Work Phone: End: 08-15-2020 XR CHEST (2 VW) XR CHEST (2 VW) Imaging STAT Once for 1 Occurrences starting 08/15/2020 until 08/15/2020 [employer] Work Phone: Comment on above: Once for 1 Occurrenc es starting 08/15/2020 until 08/15/2020 XR CHEST (2 VW) XR CHEST (2 VW) Imaging STAT 08/15/2020 9:22 PM EDT [facility] Work Phone: [facility] Immunizations Immunization Date Immunization Notes Care Provider Fa [facility] 01-10-2023 influenza, injectabl e, quadrivalent, preservative free No Primary Care Physician [facility] 01-10-2023 influenza virus vaccine, unspecified formulation [facility] 09-18-2020 Covid (Pfizer) No Primary Ca re Physician [facility] 07-26-2020 Covid (Pfizer) No Primary Ca re Physician [facility] 12-09-2013 influenza, seasonal, injectable Dasia [place] TIRE MOLD TESTER.TELEVISION SPECIALIST Work Phone: [facility] 04-05-2013 tetanus toxoid, redu yonny diphtheria toxoid, and acellular pertussis vaccine, adsorbed Dasia Marni TIRE MOLD TESTER.TELEVISION SPECIALIST Work Phone: [facility] 07-18-1997 measles, mumps and rubella virus vaccine No Primary Care Physician [facility] 01-17-1997 hepatitis B vaccine, pediatric or pediatric/adolescent dosage No Primary Care Physician [facility] 05-09-1995 hepatitis B vaccine, pediatric or pediatric/adolescent dosage No Primary Care Physician [facility] 05-09-1995 measles, mumps and rubella virus vaccine No Primary Care Physician [facility] 1993 hepatitis B vaccine, pediatric or pediatric/adolescent dosage No Primary Care Physician [facility] 1993 hepatitis B vaccine, pediatric or pediatric/adolescent dosage No Primary Care Physician [facility] Payers Date Payer Category Payer Self-pay 2023 Unknown [id number] 2022 Medicaid [id number] 2015 Unknown [id number] 1993 Unknown [id number] 1993 Unknown [id number] Unknown Unknown [id number] Unknown [id number] Unknown [id number] Social History Date Type Detail Facility Start: 08-15-2020 End: 01-16-2023 Tobacco smoking status NHIS Current every day smoker [facility] Work Phone: Start: 08-15-2020 End: 01-16-2023 Tobacco use and exposure Never used [employer] Start: 1993 Sex Assigned At Not on file [facility] Work Phone: Exposure to SARS-CoV-2 (event) Not sure [employer] Start: 01-16-2023 End: 06-09-2023 Tobacco smoking consumption unknown [facility] History of tobacco use Cigarette Smoker [facility] Work Phone: Start: 01-16-2023 End: 02-05-2023 Cigarettes smoked current (pack per day) - Reported 0.3 [facility] Start: 01-16-2023 End: 02-05-2023 Alcohol intake Current non-drinker of alcohol (finding) [facility] Start: 01-16-2023 End: 02-05-2023 Tobacco use panel [facility] National Score (1-100), lower number is lower risk 89 [facility] Start: 01-16-2023 Education 13 [facility] Start: 1995 Sex Assigned At Female [facility] Start: 05-12-2024 Sex Female (finding) [facility] NEGATED: Highlighted rowStart: NINF History of tobacco use Passive smoker [facility] Work Phone: Functional Status Date Assessment Result Facility 09-23-2014 Are you deaf, or do you have serious difficulty hearing No 09/23/2014 3:38 PM EDT Cyrus Leelee ODELL [facility] 09-23-2014 Are you blind, or do you have serious difficulty seeing, even when wearing glasses No 09/23/2014 3:38 PM EDT Cyrus Leelee ODELL [facility] 09-23-2014 Do you have serious difficulty walking or climbing stairs No 09/23/2014 3:38 PM EDT Cyrus Leelee ODELL [facility] 09-23-2014 Do you have difficul ty dressing or bathing No 09/23/2014 3:38 PM EDT Cyrus Leelee ODELL [facility] 09-23-2014 Because of a physica l, mental, or emotional condition, do you have difficulty doing errands alone such as visiting a physician's office or shopping No 09/23/2014 3:38 PM EDT Cyrus Leelee ODELL [facility] Mental Status Date Assessment Result Facility 05-12-2024 Cognitive function Awake;Alert;A ppropriate; Follows Commands [facility] Work Phone: 09-23-2014 Because of a physica l, mental, or emotional condition, do you have serious difficulty concentrating, remembering, or making decisions No 09/23/2014 3:38 PM EDT Cyrus ODELLLeelee Dahiana [facility] Clinical Notes 04-02-2013 to 09-22-2024 Denisse Alba APRN.TELEVISION SPECIALIST - 09/22/2024 4:46 PM EDTTelephone Encounter - Danelle Sanchez - 06/15/2024 10:52 AM EDTTelephone Encounter - Danelle Sanchez - 06/15/2024 10:52 AM EDTInstructionsAttachments Note Date & Type Note Facility 09-22-2024 Note HNO ID: [id number] Author: DENISSE ALBA APRN.ROWAN Service: ? Author Type: Nurse Practitioner Type: Progress Notes Filed: 09/22/2024 18:51 Note Text: Subjective Patient ID: Catrina is a 29 year old female who presents for Rash (Rash all over body x 2 weeks, blisters on PAMELA hands x 2 weeks). The history is provided by the patient. No tire builder heavy service was used. Patient presents to office from home via personal vehicle with rash and itching x2w States started with 7/10 blister with bilateral hands Rash intermittent arm then noticed spread to abdomen Sunday Last x1h itchy to bilateral thighs and left flank Benadryl taken yesterday Denies joint pain, N/V/D, fever, chills nor abd pain No change to lotion, soaps and detergents Does her own nails PSH: tonsils removed, PMH: childhood asthma, Meds: no daily meds No known allergies to food, drugs or environment Smokes Half a pack per day, no ETOH and no street drug use LMP: implant PAST MEDICAL HISTORY Diagnosis Date Asthma Nephrolithiasis Panic attacks PAST SURGICAL HISTORY Procedure Laterality Date OTHER SURGICAL HISTORY (PLEASE SPECIFY) HX laparoscopic removal of endometrial tissue PAST SURGICAL HISTORY OF Left removal of breast mass benign TONSILLECTOMY HX ALLERGIES Patient has no known allergies. MEDICATIONS etonogestrel (NEXPLANON) 68 mg impl subdermal implant 68 mg by SUBDERMAL route. fluticasone (FLONASE) 50 mcg/actuation nasal spray Use 1 [place] in each nostril daily at bedtime. BEFORE LYING DOWN FOR BED (Patient not taking: Reported on 09/22/2024) FAMILY HISTORY Problem Relation Age of Onset No Known Problems Mother other (cardiac arrest) Father Cervical Cancer Sister No Known Problems Sister No Known Problems Sister other (passed as an infant) Brother No Known Problems Brother No Known Problems Brother No Known Problems Brother Heart Attack Maternal Grandfather Heart Attack Paternal Grandfather Social History Tobacco Use Smoking status: Every Day Current packs/day: 0.33 Types: Cigarettes Passive exposure: Never Smokeless tobacco: Never Vaping Use Vaping status: Never Used Substance Use Topics Alcohol use: No Drug use: No Objective BP 130/90 Pulse 105 Temp 37.2 ?C (99 ?F) Resp 17 Wt 69 kg (152 lb 1.9 oz) LMP 12/21/2022 SpO2 97% BMI 28.28 kg/m? Physical Exam Vitals and nursing note reviewed. HENT: Head: Normocephalic. Nose: Nose normal. Mouth/Throat: Mouth: Mucous membranes are moist. Pharynx: Oropharynx is clear. Eyes: Extraocular Movements: Extraocular movements intact. Pupils: Pupils are equal, round, and reactive to light. Cardiovascular: Rate and Rhythm: Normal rate. Pulses: Normal pulses. Pulmonary: Effort: Pulmonary effort is normal. Breath sounds: Normal breath sounds. Abdominal: General: Bowel sounds are normal. Palpations: Abdomen is soft. Musculoskeletal: General: Normal range of motion. Cervical back: Normal range of motion and neck supple. Skin: General: Skin is warm. Capillary Refill: Capillary refill takes less than 2 seconds. Findings: Rash present. Rash is macular. Comments: +macular rash to chest and bilateral thighs, pruritic with linear excoriations +multiple clear vesicular papules around left 2nd, 4th and 5th and right 2nd-4th digit nailbeds, no puritus Neurological: General: No focal deficit present. Mental Status: She is alert and oriented to person, place, and time. Cranial Nerves: Cranial nerves 2-12 are intact. Sensory: Sensation is intact. Motor: Motor function is intact. Coordination: Coordination is intact. Gait: Gait is intact. Psychiatric: Mood and Affect: Mood normal. Speech: Speech normal. Behavior: Behavior normal. Thought Content: Thought content normal. Judgment: Judgment normal. Assessment AND Plan Allergic dermatitis Rash ASSESSMENT/PLAN: 1. Allergic dermatitis - ICD9: 692.9, ICD10: L23.9 (primary diagnosis) 2. Rash - ICD9: 782.1, ICD10: R21 - Begin oral steroid: Prednisone taper - Begin antihistamine: Claritin and Pepcid daily for itching and rash - Anti itch therapy of Oral Benydryl recommended as needed - Likely viral etiology discussed with patient - discussed skin care of rash and refrain from scratching preventing skin breaking - follow up with PCP if symptoms persist or worsen Danielle Mckeon NP student TEACHING PROVIDER (Physician/PA/TIRE MOLD TESTER) NOTE OF PERSONAL INVOLVEMENT IN CARE: I have personally seen and examined the patient and performed the medical decision-making components. I have reviewed the Advanced Practice Registered Nurse (TIRE MOLD TESTER) Student's documentation and verified the findings in the note as written. Any additions or changes are noted in bold/italics. Signature: Denisse lAba Date: 09/22/2024 Time: 6:50 PM [facility] 09-22-2024 History of Presen t illness Narrative Subjective Patient ID: Catrina is a 29 year old female who presents for Rash (Rash all over body x 2 weeks, blisters on PAMELA hands x 2 weeks). The history is provided by the patient. No tire builder heavy service was used. Patient presents to office from home via personal vehicle with rash and itching x2w States started with 7/10 blister with bilateral hands Rash intermittent arm then noticed spread to abdomen Sunday Last x1h itchy to bilateral thighs and left flank Benadryl taken yesterday Denies joint pain, N/V/D, fever, chills nor abd pain No change to lotion, soaps and detergents Does her own nails PSH: tonsils removed, PMH: childhood asthma, Meds: no daily meds No known allergies to food, drugs or environment Smokes Half a pack per day, no ETOH and no street drug use LMP: implant PAST MEDICAL HISTORY Diagnosis Date Asthma Nephrolithiasis Panic attacks PAST SURGICAL HISTORY Procedure Laterality Date OTHER SURGICAL HISTORY (PLEASE SPECIFY) HX laparoscopic removal of endometrial tissue PAST SURGICAL HISTORY OF Left removal of breast mass benign TONSILLECTOMY HX ALLERGIES Patient has no known allergies. MEDICATIONS etonogestrel (NEXPLANON) 68 mg impl subdermal implant 68 mg by SUBDERMAL route. fluticasone (FLONASE) 50 mcg/actuation nasal spray Use [address] [place] in each nostril daily at bedtime. BEFORE LYING DOWN FOR BED (Patient not taking: Reported on 09/22/2024) FAMILY HISTORY Problem Relation Age of Onset No Known Problems Mother other (cardiac arrest) Father Cervical Cancer Sister No Known Problems Sister No Known Problems Sister other (passed as an ) Brother No Known Problems Brother No Known Problems Brother No Known Problems Brother Heart Attack Maternal Grandfather Heart Attack Paternal Grandfather Social History Tobacco Use Smoking status: Every Day Current packs/day: 0.33 Types: Cigarettes Passive exposure: Never Smokeless tobacco: Never Vaping Use Vaping status: Never Used Substance Use Topics Alcohol use: No Drug use: No Objective BP 130/90 Pulse 105 Temp 37.2 C (99 F) Resp 17 Wt 69 kg (152 lb 1.9 oz) LMP 12/21/2022 SpO2 97% BMI 28.28 kg/m Physical Exam Vitals and nursing note reviewed. HENT: Head: Normocephalic. Nose: Nose normal. Mouth/Throat: Mouth: Mucous membranes are moist. Pharynx: Oropharynx is clear. Eyes: Extraocular Movements: Extraocular movements intact. Pupils: Pupils are equal, round, and reactive to light. Cardiovascular: Rate and Rhythm: Normal rate. Pulses: Normal pulses. Pulmonary: Effort: Pulmonary effort is normal. Breath sounds: Normal breath sounds. Abdominal: General: Bowel sounds are normal. Palpations: Abdomen is soft. Musculoskeletal: General: Normal range of motion. Cervical back: Normal range of motion and neck supple. Skin: General: Skin is warm. Capillary Refill: Capillary refill takes less than 2 seconds. Findings: Rash present. Rash is macular. Comments: +macular rash to chest and bilateral thighs, pruritic with linear excoriations +multiple clear vesicular papules around left 2nd, 4th and 5th and right 2nd-4th digit nailbeds, no puritus Neurological: General: No focal deficit present. Mental Status: She is alert and oriented to person, place, and time. Cranial Nerves: Cranial nerves 2-12 are intact. Sensory: Sensation is intact. Motor: Motor function is intact. Coordination: Coordination is intact. Gait: Gait is intact. Psychiatric: Mood and Affect: Mood normal. Speech: Speech normal. Behavior: Behavior normal. Thought Content: Thought content normal. Judgment: Judgment normal. Assessment & Plan Allergic dermatitis Rash ASSESSMENT/PLAN: 1. Allergic dermatitis - ICD9: 692.9, ICD10: L23.9 (primary diagnosis) 2. Rash - ICD9: 782.1, ICD10: R21 - Begin oral steroid: Prednisone taper - Begin antihistamine: Claritin and Pepcid daily for itching and rash - Anti itch therapy of Oral Benydryl recommended as needed - Likely viral etiology discussed with patient - discussed skin care of rash and refrain from scratching preventing skin breaking - follow up with PCP if symptoms persist or worsen Danielle Mckeon NP student TEACHING PROVIDER (Physician/PA/TIRE MOLD TESTER) NOTE OF PERSONAL INVOLVEMENT IN CARE: I have personally seen and examined the patient and performed the medical decision-making components. I have reviewed the Advanced Practice Registered Nurse (TIRE MOLD TESTER) Student's documentation and verified the findings in the note as written. Any additions or changes are noted in bold/italics. Signature: Denisse Alba Date: 09/22/2024 Time: 6:50 PM documented in this encounter [facility] 06-15-2024 Telephone encounter Note Called patient and unable to leave a vm [facility] 06-15-2024 Miscellaneous Notes Called patient and unable to leave a vm Called pt unable to lvm in regards to scheduling appt for Nexplonon. PSS: Please contact patient to schedule Nexplanon removal and insertion. Thank you. Radha Bruce RN Orders filed. Dasia Grider APRN.CNP Patient was last seen in office on 01/16/23 and Nexplanon removal was ordered at that time. Order has . Radha Bruce RN Pt needs nexplonon removal and a new one inserted. No order in chart documented in this encounter [facility] 06-13-2024 Telephone encounter Note Called pt unable to lvm in regards to scheduling appt for Nexplonon. [facility] 06-12-2024 Telephone encounter Note PSS: Please contact patient to schedule Nexplanon removal and insertion. Thank you. Radha Bruce RN [facility] 06-12-2024 Telephone encounter Note Orders filed. Dasia Grider APRN.TELEVISION SPECIALIST [facility] 06-12-2024 Telephone encounter Note Patient was last seen in office on 01/16/23 and Nexplanon removal was ordered at that time. Order has . Radha Bruce RN [facility] 06-12-2024 Telephone encounter Note Pt needs nexplonon removal and a new one inserted. No order in chart [facility] 05-12-2024 Radiology Diagnostic study note [facility] Imaging Services [address] [place] [address] Chest 1 View (Portable) MR#: [id number] Acct: [id number] Name: CATRINA SOSA Rep #: [id number] 3 : 1995 F 28 From: Avis Maciel MD PCP: Care Physician,No Primary Status: PRE ER Study:Chest 1 View (Portable) Date of Exam: 05/12/24 Exam# [id number] Ordering Dr: Elías Yanes MD EXAM: XR Chest, 1 View CLINICAL INDICATION: CHEST PAIN TECHNIQUE: Frontal view of the chest. COMPARISON: No relevant prior studies available. FINDINGS: LUNGS AND PLEURAL SPACES: Unremarkable. No consolidation. No pneumothorax. HEART: Unremarkable. No cardiomegaly. MEDIASTINUM: Unremarkable. Normal mediastinal contour. BONES/JOINTS: Unremarkable. No acute fracture. RAD/Chest 1 View (Portable) IMPRESSION: No acute cardiopulmonary process. [facility] CC: Dr. 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 Pt has a Nexplanon in place since 2013, she did not have a period for 6 yrs, then menses returned. Menses: cycles every 24-26 days and 4 days of flow. Contraception: Nexplanon HPV vaccine: Yes Last Pap: normal 2014 HPV: N/A History of abnormal pap: No Last mammogram: never Sexually active: Yes History of STDS: None Patient concerns for STD exposure: No. 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 History Comments: Sexual Activity: Yes; Male Contraception: None PAST MEDICAL HISTORY Diagnosis Date Asthma Nephrolithiasis Panic attacks PAST SURGICAL HISTORY Procedure Laterality Date OTHER SURGICAL HISTORY (PLEASE SPECIFY) HX laparoscopic removal of endometrial tissue PAST SURGICAL HISTORY OF Left removal of breast mass benign TONSILLECTOMY HX FAMILY HISTORY Problem Relation Age of Onset No Known Problems Mother other (cardiac arrest) Father Cervical Cancer Sister No Known Problems Sister No Known Problems Sister other (passed as an ) Brother No Known Problems Brother No Known Problems Brother No Known Problems Brother Heart Attack Maternal Grandfather Heart Attack Paternal Grandfather SOCIAL HISTORY Social History Tobacco Use Smoking status: Every Day Packs/day: .33 Types: Cigarettes Passive exposure: Never Smokeless tobacco: Never Vaping Use Vaping Use: Never used Substance Use Topics Alcohol use: No Drug use: No REVIEW OF SYSTEMS Abdomen: No abdominal pain, nausea, vomiting, diarrhea, or constipation. No bloating, early satiety, indigestion, or increased flatulence. Bladder: No dysuria, gross hematuria, urinary frequency, urinary urgency, or incontinence. Breast: No breast lumps, nipple d/c, overlying skin changes, redness or skin retraction. Allergies and current medication updated:Yes EXAM: Ht 5' 1.5 (1.56m) Wt 162 lb 6.4 oz (73.7kg) LMP 12/21/2022 BMI 30.19 kg/(m^2). GENERAL: pleasant, female in no apparent distress HEENT: Normocephalic, atraumatic, mucus membranes moist, and no lesions NECK: Supple, full range of motion, no adenopathy, and thyroid normal DERMATOLOGY: Normal, without lesions, non-icteric, and non-hirsute BREAST: soft, non-tender, symmetric, no dominant mass, normal nipple-areolar complex, no lymphadenopathy, and no nipple discharge CHEST: Normal inspiratory effort ABDOMEN: soft, non-tender, and no masses PELVIC: external genitalia normal, normal Bartholin's glands, urethra, [place]'s glands, no vulvar lesions, no cervical lesions, good vaginal support, physiologic discharge present, normal appearing perineal body and perianal region BIMANUAL: uterus normal size, shape and consistency, no adnexal masses, and non-tender RECTOVAGINAL: deferred. NEURO: alert and oriented x3,exam grossly non-focal EXTREMITIES: normal ASSESSMENT/PLAN: 1) Health maintenance: Pap done with reflex HPV. Mammogram starting age 40. Nutrition, exercise and routine health maintenance exams reviewed. Calcium/Vitamin D supplementation information provided. HPV vaccine: completed series 2) Contraception: Nexplanon. Contraceptive options reviewed and information provided. 3) STD screening: Declined STD check. 4) Follow up one year or sooner as needed Nexplanon removal order filed. Pt to return for removal Dasia Grider APRN.ROWAN documented in this encounter [facility] 11-04-2020 Hospital Discharg e Paula Jacksonhant, MD - 11/04/2020 Please take antibiotics as prescribed Return to the Emergency Department immediately if you develop worsening symptoms, or you have any other concerns. Please follow up with your family doctor in 1-2 days. The following attachments cannot be sent through Care Everywhere.Lymph Nodes: Swollen (Eritrean)Smoking: Stopping (Eritrean)Video: Quitting Smoking: Medicines to Help With Cravings (Eritrean)Smoking Cessation: Health Benefits: General Info (Eritrean)documented in this encounter [email or web address] Phone: 08-15-2020 [facility] instructions Chris Cazares MD - 08/15/2020 RETURN FOR NEW OR WORSENING SYMPTOMS. The following attachments cannot be sent through Care Everywhere.Bronchitis: Chronic: General Info (Eritrean)Impetigo (Eritrean)documented in this encounter [email or web address] Phone: 04-02-2013 History of Past i llness Narrative Problem Noted Date Diagnosed Date Resolved Date Active labor 04/02/2013 01/30/2014 Asthma 07/20/2015 documented as of this encounter (statuses as of 01/16/2023) [facility] Diagnosis Impetigo- Primary Bronchitis Bronchitis, not specified as acute or chronic documented in this encounter [email or web address] Phone: [email or web address] note* Diagnosis Lymphadenitis- Primary Lymphadenitis, unspecified, except mesenteric Smoking Tobacco use disorder documented in this encounter [email or web address] Phone: evaluation note* Diagnosis Encounter for gynecological examination (general) (routine) without abnormal findings- Primary Screening for cervical cancer Screening for malignant neoplasm of the cervix Encounter for screening for human papillomavirus (HPV) Special screening examination for human papillomavirus (HPV) Nexplanon removal Surveillance of previously prescribed implantable subdermal contraceptive [facility] Diagnosis Onset Date Resolution Status Physical exam, pre-employment acute [facility] Work Phone: Evaluation noteNo assessment information available [facility] [employer] Mobile Phone: Evaluation note* Diagnosis Nexplanon removal- Primary Surveillance of previously prescribed implantable subdermal contraceptive Nexplanon insertion Insertion of implantable subdermal contraceptive [facility] Diagnosis Allergic dermatitis- Primary Contact dermatitis and other eczema, due to unspecified cause Rash Rash and other nonspecific skin eruption [facility] Additional Instructions The testing of your heart looks normal with no sign of heart attack. Chest x-ray is normal. I am not sure what is causing your symptoms but have ruled out life-threatening causes and you can follow-up with your primary care doctor.[facility] Work Phone: Reason for referral (narrative)* Outpatient Procedure (Routine) - Pending Review Specialty Diagnoses / Procedures Referred By Anayeli hopkins Referred To Contact [facility] Diagnoses Nexplanon removal Procedures NEXPLANON REMOVAL REMOVAL NON-BIODEGRADABLE DRUG DELIVERY IMPLANT Dasia Grider APRN.CNP [address] [place] [address] [facility] [address] [place] [address] Referral ID Status Reason Start Date Expiration Date Visits Requested Visits Authorized [id number] Pending Review Auto-Generat ed Referral 3 01/16/2024 1 1 INO [facility] for referral (narrative)No reason for referral [facility] Work Phone: Summary Purpose Family History No Family History Records FoundNo Family History Records FoundNo Family History Records FoundNo Family History Records FoundNo Family History Records FoundNo Family History Records FoundNo Family History Records FoundNo Family History Records FoundNo Family History Records Found Advance Directives No Advanced Directives Records Found Advance Directive Response Recorded Date/ Time Advance Directives No April 12, 2016 11:39am Living Will No April 12 11:39am Power of Sweet Dough Mixer No April 12, 2016 11:39am Advance Directive Response Recorded Date/ Time Advance Directives No April 12, 2016 12:39pm Living Will No June 09, 2023 2:02pm Power of Sweet Dough Mixer No June 08 2:02pm Advance Directive Response Recorded Date/ Time Living Will No May 12, 2024 4:26pm Power of Sweet Dough Mixer No May 12 4:26pm Advance Directives No January 09, 2023 11:51am Chief Complaint and Reason for Visit Chief Complaint [facility] 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 [employer] [facility] PHYSICAL/[facility] Reason for Visit Physical exam, pre-e mployment Chief Complaint FLANK Chief Complaint Admit Date chest pain May 12, 2024 3:0 2pm Additional Source Comments INFORMATION SOURCE (unrecogn ized section and content) DATE CREATED AUTHOR 08/23/2017 [facility] DATE CREATED AUTHOR AUTHOR'S ORGANIZ ATION 08/27/2017 [facility] DATE CREATED AUTHOR AUTHOR'S ORGANIZ ATION 08/29/2017 [facility] DATE CREATED AUTHOR AUTHOR'S ORGANIZ ATION 08/16/2020 [facility] DATE CREATED AUTHOR AUTHOR'S ORGANIZ ATION 11/06/2020 [facility] DATE CREATED AUTHOR AUTHOR'S ORGANIZ ATION [facility]/30/2021 [facility] DATE CREATED AUTHOR AUTHOR'S ORGANIZ ATION 05/24/2024 [facility] DATE CREATED AUTHOR AUTHOR'S ORGANIZ ATION 06/10/2024 [facility] DATE CREATED AUTHOR AUTHOR'S ORGANIZ ATION 09/24/2024 [facility] Reason for Visit (unrecogniz ed section and content) Reason Comments Illness Reason Comments Other Lump on chin on left side, painful Reason Comments Yearly Exam Reason Comments Orders Reason Comments Rash Rash all over body x 2 weeks, blisters on PAMELA hands x 2 weeks Ordered Prescriptions (unrec ognized section and content) Prescription Sig Dispensed Refills Start Date End Da te mupirocin (BACTROBAN) 2 % cream Apply topically 3 times daily. 1 Tube 0 08/15/2020 09/14/2020 albuterol sulfate HFA (VENTOLIN HFA) 108 (90 Base) MCG/ACT inhaler Inhale 2 puffs into the lungs 4 times daily as needed for Wheezing 1 Inhaler 0 08/15/2020 Prescription Sig Dispensed Refills Start Date End Da te HYDROcodone-acetaminoph en (NORCO) 5-325 MG per tabletIndications:Lymph adenitis Take 1 tablet by mouth every 4 hours as needed for Pain for up to 3 days. Intended supply: 3 days. Take lowest dose possible to manage pain 12 tablet 0 11/04/2020 11/07/2020 clindamycin (CLEOCIN) 300 MG capsule Take 1 capsule by mouth 3 times daily for 10 days 30 capsule 0 11/04/2020 11/14/2020 Scheduled Active and Recently Administ ered Medications (unrecognized section and content) Medication Order 08/13/2020 08/14/2020 08/15/2020 dexamethasone (DECADRON) injection 10 mg (COMPLETED) 10 mg, Oral, ONCE, On 08/15/20 at 2034, For 1 dose 2112 (Given - Provid er: Madeline Domingo RN) ketorolac (TORADOL) injection 30 mg 30 mg, Intramuscular, ONCE, On 08/15/20 at 2034, For 1 dose, Do not administer for more than 5 days. 2143 (Not Given - Pr ovider: Madeline Domingo RN - Reason: Patient/family refused - Comment: Pt reports she doesn't like shots, Dr. Cazares aware) PRN Medication Order 08/13/2020 08/14/2020 08/15/2020 ipratropium-albuterol (DUONEB) nebulizer solution 1 ampule 1 ampule, Inhalation, PRN, Shortness of Breath, Starting on 08/15/20 at 2033 2049 (Given - Provid er: Nhi Connor RCP) Scheduled Medication Order 11/02/2020 11/03/2020 11/04/2020 clindamycin (CLEOCIN) capsule 300 mg (COMPLETED) 300 mg, Oral, ONCE, On Neetu 11/04/20 at 2335, For 1 dose 2341 (Given - Provid er: Denisse Grimes RN) HYDROcodone-acetaminophen (NORCO) 5-325 MG per tablet 1 tablet 1 tablet, Oral, ONCE, On Neetu 11/04/20 at 2335, For 1 dose, Maximum dose of acetaminophen is 4000 mg from all sources in 24 hours. 2343 (Not Given - Pr ovider: Denisse Grimes RN - Reason: Other - Comment: Patient drove self.) <item><item> Privacy Markings (unrecogniz ed section and content) Section Author: Vonda Allan PROHIBITION ON REDISCLOSURE OF CONFIDENTIAL INFORMATION This notice accompanies a disclosure of information concerning a client made to you with the consent of such client. Section Author: Vonda Allan PROHIBITION ON REDISCLOSURE OF CONFIDENTIAL INFORMATION This notice accompanies a disclosure of information concerning a client made to you with the consent of such client. Source Comments (unrecognize d section and content) In the event this informatio n is protected by the Federal Confidentiality of Alcohol and Drug Abuse Patient Records regulations: The Federal rules restrict any use of the information to criminally investigate or prosecute any alcohol or drug abuse patient.[facility] the event this information is protected by the Federal Confidentiality of Alcohol and Drug Abuse Patient Records regulations: The Federal rules restrict any use of the information to criminally investigate or prosecute any alcohol or drug abuse patient.[facility] the event this information is protected by the Federal Confidentiality of Alcohol and Drug Abuse Patient Records regulations: The Federal rules restrict any use of the information to criminally investigate or prosecute any alcohol or drug abuse patient.[facility] Care Teams (unrecognized sec tion and content) Team Status: Active Member Role Status Dates No Primary Care Physician Family Provider Active Team Status: Inactive Member Role Status Dates No Primary Care Physician Primary Care Provider, Refer ring Provider Active Davis Felix PA, PA Attending Provider Active Team Status: Active Member Role Status Dates Employee Health Attending Provider Active Team Status: Active Member Role Status Dates No Primary Care Physician Primary Care Provider Active Health Risk Assessment Attending Provider, Duc maciel Active Team Status: Inactive Member Role Status Dates Dr. Panfilo Field MD Attending Provider Active Team Status: Active Member Role Status Dates No Primary Care Physician Family Provider Active No Primary Care Physician Primary Care Provider Active Team Status: Inactive Member Role Status Dates Dr. Jimenez Payton DO Emergency Provider Active No Primary Care Physician Primary Care Provider Active Team Status: Active Member Role Status Dates No Primary Care Physician Primary Care Provider Active Team Status: Inactive Member Role Status Dates No Primary Care Physician Primary Care Provider Active Start: May 12, 2024 End: May 12, 2024 Elías Yanes MD Referring Provider Active Star t: May 12, 2024 End: May 12, 2024 Elías Yanes MD Emergency Provider Active Star t: May 12, 2024 End: May 12, 2024 Goals (unrecognized section and content) Goals may be documented in a n alternate sectionGoals may be documented in an alternate sectionGoals may be documented in an alternate sectionGoals may be documented in an alternate sectionGoals may be documented in an alternate section FOR RECORDS PERTAINING TO PATIENTS WHO ARE OR HAVE BEEN ENROLLED IN A CHEMICAL DEPENDENCY/SUBSTANCEABUSE PROGRAM, SOME INFORMATION MAY BE OMITTED. This clinical summary was aggregated from multiple sources. Caution should be exercised in using it in the provision of clinical care. This summary normalizes information from multiple sources, and as a consequence, information in this document may materially change the coding, format and clinical context of patient data. In addition, data may be omitted in some cases. CLINICAL DECISIONS SHOULD BE BASED ON THE PRIMARY CLINICAL RECORDS. [employer] [facility]. provides no warranty or guarantee of the accuracy or completeness of information in this document.
--- NOTE | 2024-10-11 13:19 | EX.ED.DYSGE1 ---
HPI History of Present Illness Chief Complaint: Rash Informant: patient Onset/Context/Timing Onset: Weeks Context: Gradual Onset Timing: Intermittent Current Severity: Mild Maximum Severity: Mild Narrative Narrative: 29-year-old female history of kidney stones for endometriosis. 2 weeks ago she developed a rash. On her arms and legs it was itching. It was diagnosed in urgent care was contact dermatitis treated with steroids and improved. On Sunday surgery return she also developed abscess on her left lower lateral lip. They tested at the urgent care and told her it was not herpes. She states that its grown. She also has some mild blistering in her mouth. Was told she had pvmx-evzd-sfr-mouth. Prior similar symptoms: Yes Recent Illness/Hospitalization: No PFSH PFS Medical History Kidney stones Endometriosis determined by laparoscopy Physical exam, pre-employment Home Medications ?Medication ?Instructions ?Recorded ?Last Taken ?Type hydrocodone-acetaminophen 5-325mg 1 tab PO Q6H PRN PRN Pain 3 days 06/09/23 Unknown Rx 5mg-325mg #10 TABLETS ondansetron 4 mg disintegrating 4 mg PO Q8H PRN PRN Nausea #10 tabs 06/09/23 Unknown Rx tablet prednisone 20 mg tablet 40 mg (2 x 20 mg) PO DAILY 7 days 10/11/24 Unknown Rx #14 tabs Allergy/AdvReac Type Severity Reaction Status Date / Time No Known Allergies Allergy Verified 10/11/24 12:16 Surgical History Hx of tonsillectomy S/P lumpectomy, left breast Social History Smoking Status: Current every day smoker tobacco type: cigarettes ROS ROS ED Constitutional Constitutional ED: Denies chills or fever(s) ENT ENT ED: Denies ear pain Cardiovascular Cardiovascular: Denies chest pain Respiratory/Chest Respiratory/Chest: Denies cough or dyspnea Gastrointestinal Gastrointestinal: Denies abdominal pain, constipation or diarrhea Genitourinary Genitourinary ED: Denies dysuria or hematuria Musculoskeletal Musculoskeletal: Denies arthralgias Integumentary Reports abscess and other Details: Left lower lip abscess. Offered but patient did not want me to drain it. Neurologic Neurologic: Denies headache(s) Psychiatric Psychiatric: Denies anxiety Endocrine Endocrinology: Denies cold intolerance Hematologic/Lymphatic Hematologic/Lymphatic: Reports none Allergic/Immunologic Allergic/Immunologic ED: Denies mouth swelling, tongue swelling or urticaria EXAM Physical Exam Narrative Exam Narrative: Appearing 29-year-old female. Vital signs stable afebrile. H EENT exam pupils round react light. Moist mucous membranes. She has an blistering on the inside of both cheeks. This could be consistent with mcmv-oexh-cof-mouth. She has a abscess on her left lateral lower lip. About a half an inch in size. It is mildly tender to palpation. I offered her to drainage she did not want that to occur. Neck nontender no lymphadenopathy. Lungs clear. Heart regular rhythm no murmur. Abdomen soft nontender. Moving all 4 extremities. Normal range of motion nontender no edema. She has nondescript rash on her left elbow and lower extremities consistent with a contact dermatitis. There is no cellulitis. No sloughing of skin. No cellulitis. Neurologically she is awake and alert. Const Vital Signs: 10/11/24 12:14 Temperature 98.1 F Temperature Source Oral Pulse Rate 102 H Respiratory Rate 18 Blood Pressure 115/84 H Blood Pressure Mean 94 Pulse Ox 98 Oxygen Delivery Method Room Air Positive well nourished and well developed; Negative for cachectic, contractures or unkempt General Appearance ED: well developed and NAD; Negative for unkempt, cachectic, contractures, cyanotic, diaphoretic or pallor Nutritional Appearance: Negative for cachectic HEENT Reports moist mucous membranes Eyes PERRL and EOMs intact bilaterally Neck no lymphadenopathy, supple and no JVD Chest Wall inspection of chest normal and palpation of chest normal Resp normal respiratory effort and clear to auscultation bilaterally Cardio regular rate, regular rhythm, S1 normal heart sound, S2 normal heart sound and no murmurs GI normal to inspection, nondistended, normoactive bowel sounds, non-tender, non-distended and no masses Auscultation: normoactive bowel sounds Palpation: soft; Negative for tender, guarding or rebound tenderness present Back/Spine no CVA tenderness Extremity normal to inspection General Extremety ED: Negative for edema or tenderness General Extremity: Negative for edema Neuro oriented x3 and CN's II-XII intact bilaterally Sensorium / Orientation: alert Motor Exam: strength 5/5 throughout Psych mental status grossly normal Appearance: Negative for unkempt Skin No no rashes or lesions noted, no wounds and skin turgor normal Skin Narrative: Rash on her elbow and lower extremities consistent with contact dermatitis. Abscess on her left lower lateral lip which I offered to drain she did not want at done. Blistering in her mouth consistent with possibly uvwh-eqxg-pgr-mouth. General Skin Exam: elasticity normal; Negative for jaundice or pallor Rashes: rashes noted MDM MDM MDM Narrative Medical decision making narrative: 29-year-old female with contact dermatitis should be treated with prednisone first dose given here 40 mg a day for a week. She has an abscess on her left lower lip which I have offered to drain for but she said she did not want it drained and that that scared her. She will try a warm compress if this gets worse she will return to have it drained. The blistering in her mouth may or may not be seey-pgdr-iix-mouth. She be treated with prednisone daily and if not resolving follow-up with dermatology. Also Gly-Oxide rinse for her mouth. History & Record Review Discussion w/independent historian: Patient Discharge Plan Triage Chief Complaint: Rash ED Provider: Foster Chavez Dx/Rx/DC Orders Clinical Impression: Contact dermatitis Instructions: ED Contact Dermatitis Prescriptions: New prednisone 20 mg tablet 40 mg PO DAILY 7 Days Qty: 14 0RF No Action hydrocodone-acetaminophen [hydrocodone-acetaminophen] 5-325 mg tablet 1 tab PO Q6H PRN PRN (Reason: Pain) 3 Days Qty: 10 0RF ondansetron [ondansetron] 4 mg tablet,disintegrating 4 mg PO Q8H PRN PRN (Reason: Nausea) Qty: 10 0RF Primary Care Provider: Care Physician,No Primary Referrals: France Galloway MD [Non-Staff] - 3-5 Days if not improving Care Physician,No Primary [Primary Care Provider] - Activity Restrictions/Additional Instructions: Rash and itch is a contact dermatitis or allergic reaction. Prednisone 40 mg a day for 1 week start tomorrow. First dose given here in the ER. You can also use Benadryl. The blister on your left lip is an abscess. Warm compresses and that should rupture. If it gets a lot bigger you need to return and we can drain it. For your mouth the sores buy [id number] Gly-Oxide. You put 3 to 5 drops on your tongue you rinse around your mouth for 2 to 3 minutes and do it 4 times a day and this should progressively get better. If this is not improving follow-up with a shop welder. Print Language: [place] Disposition Disposition: Home, Self Care
[2024-10-11 13:30] VITALS: BP 115/64; PULSE 79; RESP 18; TEMP 36.7; O2SAT 100
== END 2024-10-11 13:31 | disposition home or self-care (01) ==
PROVIDERS: Emergency Provider Emergency Medicine; Visit Provider Emergency Medicine
DX: L25.9 Unspecified contact dermatitis, unspecified cause (principal); Z87.442 Personal history of urinary calculi; F17.210 Nicotine dependence, cigarettes, uncomplicated; K13.0 Diseases of lips
CPT/HCPCS: 99282